=== PATIENT | female | born 1975 | race African-American/Black ===

== ENCOUNTER 2021-12-20 09:40 | Emergency (ER) | payer OTHER ==
--- OUTSIDE RECORDS SUMMARY | 2021-12-20 09:46 | XMS REPORT | Continuity of Care Document ---
:1975 Author Organization [facility] t Address [address] [place] [address] Care Team Providers Name Role Phone Silvia ARANA Primary Care Physician Unavailable [email or web address] Attending Clinician Unavailable NONI Attending Clinician Unavailable Brigitte Alejo Attending Clinician Unavailable Be Attending Clinician [phone] Juan Attending Clinician [phone] DORETHA Attending Clinician Unavailable MD Silvia COYNE Attending Clinician Unavailable Buck FAGN Attending Clinician Unavailable Aparna Attending Clinician [phone] Curt Attending Clinician Unavailable ALEX Attending Clinician Unavailable Silvia ARANA Attending Clinician Unavailable COVERDALE, H Attending Clinician Unavailable FIFI HILL Attending Clinician Unavailable COVERDALE, H Attending Clinician Unavailable Mariela Attending Clinician Unavailable Lisa Attending Clinician Unavailable Garfield Attending Clinician Unavailable Manfred VINSON Attending Clinician Unavailable KNOW Admitting Clinician Unavailable EARLENE, [facility] Admitting Clinician Unavailable DORETHA Admitting Clinician Unavailable MD Silvia COYNE Admitting Clinician Unavailable Be Unavailable [phone] Aparna Unavailable [phone] Foster Unavailable Unavailable Payers Payer Name Policy Type Policy Number Effective Date Expiration Date S shaina AMERIVANTAGE DUAL P [id number] HMO/MMP AMERIVANTAGE DUAL S [id number] 2021 2022 HMO/MMP 00:00:00 00:00:00 FINANCIAL [id number] 2021 ASSISTANCE 00:00:00 Problems Condition Condition Condition Status Onset Resolution Last Treating Co mments Source Name Details Category Date Date Treatment Clinician Date Anemia Condition Active 2021-03-18 Pearl Lr 03-18 20:04:52 Mariam Communi 00:00: ty 00 Health Menorrhagi Condition Active 2021-03-18 Earlene Lr a 03-18 14:38:37 Mariam Communi 00:00: ty 00 Health Elevation Condition Active 2021-03-18 Earlene Lr of levels 03-18 14:38:37 Mariam Commu ni of liver 00:00: ty transamina 00 Health se levels COVID-19 Condition Active 2021-03-18 Earlene Lr evaluation 03-18 14:38:37 Mariam Comm uni encounter, 00:00: ty exposure 00 Health ruled out Unspecifie Condition Active 2021-03-18 Villafranc [facility] d pruritic - 14:23:43 a, Comm uni disorder 00:00: Jesenia ty 00 Health Lower back Condition Active 2021-03-18 Earlene Lr pain 02-08 14:23:43 Mariam Communi 00:00: ty 00 Health Diabetes Condition Active 2021-03-18 Earlene Lr mellitus 02-08 14:23:43 Mariam Commun i type II 00:00: ty 00 Health MORBID Condition Active 2019-02-08 Pearl Lr OBESITY 02-08 12:04:41 Mariam Communi 00:00: ty 00 Health Bipolar Condition Active 2019-02-08 Yue Lr egacy disorder 01-11 11:40:30 Mariam Commun i 00:00: ty 00 Health Hepatitis Condition Active 2021-03-18 Earlene Lr B 01-11 14:34:29 Mariam Communi 00:00: ty 00 Health Health Condition Active 2019-01-11 Pearl Lr care 01-11 15:30:10 Mariam Communi maintenanc 00:00: ty e 00 Health Tobacco Condition Active 2019-02-08 Yue Lr jayant use 01-11 11:40:30 Mariam Communi 00:00: ty 00 Health HIV Condition Active 2021-03-18 Pearl Craig infection 12-28 14:34:29 Brijesh Commu ni 00:00: ty 00 Health Hordeolum Hordeolum Diagnosis Active C entral externum externum Care left upper left upper Co mmuni eyelid eyelid [facility] Back pain Back pain Diagnosis Active C entral Care Communi ty [facility] Center History of Past Illness Condition Condition Condition Status Onset Resolution Last Treating Co mments Source Name Details Category Date Date Treatment Clinician Date Trichomona Condition Inactiv 2021-03-18 2021-03-18 Earlene Lr 01-11 00:00:00 14:38:37 Mariam Commun i vaginitis 00:00: ty 00 Health Obesity Condition Inactiv 2019-02-08 2019-02-08 Earlene Lr 01-11 00:00:00 12:04:41 Mariam Commun i 00:00: ty 00 Health Pre-proced Condition Inactiv 2018-2019-01-11 2019-01-11 Earlene Lr ural e 12-28 00:00:00 15:30:10 Mariam Commun i laboratory 00:00: ty examinatio 00 Health n Allergies, Adverse Reactions, Alerts Allergy Allergy Status Severity Reaction(s) Onset Inactive Treating Comm ents Source Name Type Date Date Clinician No Known DA Active U [facility] Allergie 3-12 Pearlan s 00:00: d 00 Medical [place] Social History Social Habit Start Date Stop Date Quantity Comments Source social history 2021-03-18 2021-03-18 reviewed today [facility] reviewed E&M 14:19:28 14:19:28 [facility] time of call 2021-03-04 2021-03-04 03/04/2021 9:31 AM Lega cy 09:30:55 09:30:55 [facility] albumin, serum 2021-01-31 2021-01-31 3.9 g/dL [facility] 15:09:00 15:09:00 [facility] drug use 2021-01-31 2021-01-31 Previously [facility] 14:07:00 14:07:00 [facility] alcohol use 2021-01-31 2021-01-31 Currently [facility] 14:07:00 14:07:00 [facility] is there any chance 2021-01-31 2021-01-31 No Legac y that you could be 14:07:00 14:07:00 Communi ty ? Health tobacco use 2021-01-31 2021-01-31 Currently [facility] (cigarettes, cigar, 14:07:00 14:07:00 Commu nity chew, pipe) Health if the patient is 2021-01-31 2021-01-31 No [facility] using/has used a 14:07:00 14:07:00 Communit y vaping item, Health Current, Former, Never Used, Not asked sexual orientation 2021-01-31 2021-01-31 Heterosexual Lega cy 14:07:00 14:07:00 [facility] passive cigarette 2019-02-08 2019-02-08 Yes Legacy smoke exposure 11:20:49 11:20:49 [facility] PHQ2 Questionairre 2019-02-08 2019-02-08 Legacy Score 11:20:49 11:20:49 [facility] assessment of health 2019-02-08 2019-02-08 Adequate Lega cy literacy (NCQA [facility] 11:20:49 11:20:49 Commu nity 2014 Standards, Health 3C10) alcohol use, 2019-01-11 2019-01-11 few times per [facility] frequency 11:06:08 11:06:08 month [facility] sex at 2019-01-11 2019-01-11 Female [facility] 11:06:08 11:06:08 [facility] patient considered 2019-01-11 2019-01-11 Yes Legacy to be homeless 11:06:08 11:06:08 [facility] Smoking Status Start Date Stop Date Source Occasional tobacco smoker 2021-01-31 14:07:00 Pearl gibson [facility] (finding) Smokes tobacco daily (finding) 2019-02-08 11:20:49 [facility] Medications Ordered Filled Start Stop Current Ordering Indication Dosage Frequency Signature Comments Components Source Medication Medication Date Date Medication? Clinician (SIG) Name Name BACTRIM DS Yes Mariam Take 1 Leg acy (SULFAMETHO 8 Be tablet by C ommuni XAZOLE-TRIM 00:00: mouth ty ETHOPRIM) 00 every Health 800-160 MG twelve TABS hours Take twice a day for 3 weeks, then start taking it once a day. TRIUMEQ Yes Mariam 1 tablet Lega cy (ABACAVIR-D 6- Be by mouth Co mmuni OLUTEGRAVIR 00:00: once a day ty -LAMIVUD) 00 Health 600-50-300 MG TABS BACTRIM DS Mariam 1{Table 1xD 1 tablet [facility] (SULFAMETHO 6-04 08- Be t} by mouth C ommuni XAZOLE-TRIM 00:00: 00:00 once a day ty ETHOPRIM) 00 :00 Health 800-160 MG TABS Ibuprofen Ibuprofen Yes Maryann 1 tablet Central 4-05 Rodrigo as needed Care 00:00: Communi 00 Health Center TobraDex TobraDex 2018- Yes Maryann 1 Lobito tral 4-05 Rodrigo applicatio Care 00:00: n Communi 00 [facility] Zoloft 1969-0 Yes Legacy 1-01 Communi 00:00: ty 00 Health Immunizations Ordered Immunization Filled Immunization Date Status Commen ts Source Name Name engerix-b im 20 2019-02-08 Completed [facility] Co mmunity mcg/ml 12:26:00 Health [id number] prevnar 13 im 2019-01-11 Completed [facility] Comm unity [id number] 16:19:00 Health havrix im 1440 el 2019-01-11 Completed [facility] Community u/ml 16:16:00 Health [id number] Vital Signs Vital Name Observation Time Observation Value Comments Source height in 2021-01-31 14:07:00 [facility]56 [facility] oxygen saturation, 2019-02-08 11:20:49 98 /min [facility] oximetry Health blood pressure, 2019-02-08 11:20:49 80 mm[Hg] Legac y [facility] diastolic Health blood pressure, 2019-02-08 11:20:49 130 mm[Hg] Legac y [facility] systolic Health respiratory rate E&M 2019-02-08 11:20:49 12 /min [facility] Health pulse rate 2019-02-08 11:20:49 80 /min [facility] Health temperature E&M 2019-02-08 11:20:49 97.6 [degF] Legac [facility] Health weight E&M 2019-02-08 11:20:49 233 [lb_av] [facility] C ommunity Health weight in kilograms 2019-02-08 11:20:49 105.91 kg [facility] E& Health height in 2019-02-08 11:20:49 162.56 cm [facility] centimeters [facility]M Health temperature site 2019-02-08 11:20:49 oral Lega cy [facility] Health oxygen saturation, 2019-01-11 11:06:08 99 [facility], 2019-01-11 11:06:08 97 mm[Hg] Legac y [facility] diastolic Health blood pressure, 2019-01-11 11:06:08 138 mm[Hg] Legac y [facility] systolic Health respiratory rate E&M 2019-01-11 11:06:08 12 /min [facility] Health pulse rate 2019-01-11 11:06:08 70 /min [facility] temperature E&M 2019-01-11 11:06:08 97.8 [degF] Legac y [facility] Health height in 2019-01-11 11:06:08 162.56 [facility] centimeters [facility] Health weight E&M 2019-01-11 11:06:08 232 [lb_av] [facility] Health weight in kilograms 2019-01-11 11:06:08 105.45 kg L [facility] E&M Health temperature site 2019-01-11 11:06:08 oral Lega giuseppe [facility] Health Procedures Procedure Date / Time Performing Clinician Source Performed Prescription Assistance 2021-03-18 14:38:43 Mariam Lr [facility] (HIV - URGENT) Health 3044F Most recent 2021-02-01 21:57:29 Jesenia Braun Artie chin [facility] hemoglobin A1c (HbA1c) Health level less than 7.0% (DM) First Vx - Ix admin via 2019-02-08 12:24:05 Mariam Lr Community ID IM or jet injects Health without counseling by physician Engerix-B Injection 2019-02-08 12:24:05 Mariam Lr C ommunity Suspension 20 MCG/ML [facility] Health 2019-02-08 12:14:39 Reji Richardson Commu nity Education/Supportive Health Counseling Nutritional Counseling 2019-02-08 12:03:14 Mariam Lr [facility] Health Vaccines Ordered - Print 2019-02-08 11:48:39 Mariam Lr Community Consent/Declination Health [facility] Health 2019-02-07 16:50:50 Reji Richardson Commu nitdanish Education/Supportive Health Counseling Addl Vx - Ix admin via 2019-01-11 16:16:50 Mariam Lr Community ID IM or jet injects Health without counseling by physician Prevnar 13 Intramuscular 2019-01-11 16:16:50 Mariam Lr Community Suspension Health First Vx - Ix admin via 2019-01-11 16:16:49 Mariam Lr Community ID IM or jet injects Health without counseling by physician Havrix Intramuscular 2019-01-11 16:16:49 Mariam Lr Community Suspension 1440 EL U/ML [facility] Health 2019-01-11 15:13:31 Reji Richardson Commu nity Education/Supportive Health Counseling Primary Care Service 2019-01-11 14:16:16 Latesha Beltre Community Linkage Health Primary Care - Service 2019-01-11 13:46:16 Promise Tong Community Planning Comprehensive Health Primary Care - 2019-01-11 13:46:16 Promise Tong Com munity Assesment-Comprehensive Health [facility] Primary Care Medical 2019-01-11 13:42:57 Promise Tong y Community Case Management Health Dental - Internal 2019-01-11 12:35:02 Mariam Lr Com munity Health Prescription Assistance 2019-01-11 12:34:43 Mariam Lr Community (HIV - URGENT) Health Vaccines Ordered - Print 2019-01-11 12:30:22 Mariam Lry Community Consent/Declination Health Forms Health 2019-01-10 17:51:37 Reji Richardsonjohn Commu nity Education/Supportive Health Counseling Venipuncture 2018-12-28 10:56:59 Mariam Lr Commu nity [facility] 2018-12-24 11:21:17 Meli Marshall Legjohn Comm unity Education/Supportive Health Counseling Venipuncture 2014-05-30 10:25:18 Everett Valdez Leg[facility] Commu nity Health Encounters Start End Encounter Admission Attending Care Care Encounter Source Date/Time Date/Time Type Type Clinicians Facility Department ID 2021-12-14 Outpatient [email or web address] [facility] Legacy 11:01:00 [facility]ly [facility] 2021-10-30 Outpatient [email or web address] [facility] [id number] [facility] 11:23:03 [facility] 2021-02-23 [facility] [id number] [facility] 18[facility]45:17 CAESA 2018-04-03 Inpatient [facility] [id number] H arris 22:32:59 Health 2017-04-13 Inpatient [facility] [id number] H arris 13:52:03 [facility] 2017-04-03 Inpatient [facility] [id number] H arris 11:00:34 Health 2021-06-15 2021-06-16 Emergency EM Alejo, HCAPM MACO [id number] [facility] 03:08:00 11:01:00 Corbin [id number] [facility] 2021-06-15 2021-06-16 Emergency EM Alejo, HCAPM HCAPM [id number] [facility] 03:08:00 11:01:00 Corbin 61 [facility] 2021-03-18 2021-03-18 Office Mariam Lr [facility] [id number] [facility] 00:00:00 00:00:00 Visit Eliza Martinez [id number] [facility] 2021-02-25 2021-02-27 [id number] [place] 00:00:00 00:00:00 LYNDA [address] 2021-02-23 2021-02-26 Inpatient [facility] [id number] [place] 18:44:00 23:00:00 [facility] 2021-02-09 2021-02-10 Emergency PIZANO-RODNEY [facility] [id number] [place] 15:54:00 01:42:00 SPRING BAUTISTA [facility] 2021-01-31 2021-02-01 Office Jesenia Braun [facility] [id number] [facility] 00:00:00 00:00:00 Visit Paige Elias [id number] [facility] 2020-12-27 2020-12-27 [facility] [id number] [place] 10:09:52 16:37:00 [facility] 2020-12-20 2020-12-20 [facility] [id number] [place] 00:00:00 00:00:00 Community [facility] 2020-12-05 2020-12-10 Inpatient COVERDALE, [facility] [id number] [place] 17:54:00 16:30:00 [facility] 2020-12-06 2020-12-06 Outpatient [facility] [id number] [place] 13:59:39 23:59:00 [facility] MARLEN 2020-12-04 2020-12-05 Emergency COVERDALE, [facility] [id number] [place] 11:50:00 17:47:00 [facility] 2020-12-04 2020-12-04 [facility] [id number] [place] 10:06:44 11:49:00 Community [facility] 2019-02-08 2019-02-16 Office Mariam Lr [facility] [id number] [facility] 00:00:00 00:00:00 Visit Cali Sierra [id number] [facility]ly [facility] Eliza Martinez Kelvin Gonzalez 2019-01-27 2019-01-27 Outpatient [facility] [id number] [place] 00:00:00 00:00:00 Health 2019-01-13 2019-01-13 Outpatient [facility] [id number] [place] 00:00:00 00:00:00 Health 2019-01-12 2019-01-12 Outpatient [facility] [id number] [place] 00:00:00 00:00:00 Health 2019-01-12 2019-01-12 Outpatient [facility] [id number] [place] 00:00:00 00:00:00 Health 2019-01-12 2019-01-12 Outpatient [facility] [id number] [place] 00:00:00 00:00:00 [facility] 2019-01-11 2019-01-12 Office Mariam Lr [facility] [id number] [facility] 00:00:00 00:00:00 Visit Jose David Merrill [id number] Kelvin Olmedo [facility] 2019-01-04 2019-01-04 Outpatient [facility] [id number] [place] 00:00:00 00:00:00 [facility] 2018-12-30 2018-12-30 Outpatient [facility] [id number] [place] 12:43:50 12:43:50 Health 2018-12-28 2018-12-28 Outpatient [facility] [id number] [place] 14:31:57 14:31:57 Health 2018-12-01 2018-12-01 Outpatient [facility] [id number] [place] 13:59:24 13:59:24 Health 2018-11-30 2018-11-30 Outpatient [facility] [id number] [place] 00:00:00 00:00:00 [facility] 2018-11-12 2018-11-12 Outpatient [facility] [id number] [place] 10:20:00 10:20:00 Care Care Care Integrate Integrated Com ken d [facility] Services Services [facility] 2018-11-04 2018-11-04 Outpatient [facility] [id number] [place] 18:09:46 18:09:46 Health 2018-10-28 2018-10-28 Outpatient [facility] [id number] [place] 13:42:02 13:42:02 Health 2018-10-19 2018-10-19 Emergency [facility] [id number] [place] 08:23:34 08:23:34 Health 2018-10-18 2018-10-18 Emergency [facility] [id number] [place] 19:50:12 19:50:12 Health 2018-10-14 2018-10-14 Outpatient [facility] [id number] [place] 18:05:36 18:05:36 [facility] 2018-10-11 2018-10-11 Outpatient [facility] [id number] [place] 15:10:59 15:10:59 [facility] 2018-05-21 2018-05-21 Outpatient [facility] [id number] [place] 00:00:00 00:00:00 [facility] 2018-05-20 2018-05-20 Outpatient [facility] [id number] [place] 00:00:00 00:00:00 [facility] 2018-05-04 2018-05-04 Outpatient [facility] [id number] [place] 00:00:00 00:00:00 [facility] 2018-04-30 2018-04-30 Outpatient [facility] [id number] [place] 00:00:00 00:00:00 [facility] 2018-04-27 2018-04-27 Outpatient [facility] [id number] [place] 00:00:00 00:00:00 [facility] 2018-04-27 2018-04-27 Outpatient [facility] [id number] [place] 00:00:00 00:00:00 [facility] 2018-04-26 2018-04-26 Outpatient [facility] [id number] [place] 00:00:00 00:00:00 [facility] 2018-04-26 2018-04-26 Outpatient [facility] [id number] [place] 00:00:00 00:00:00 [facility] 2018-04-20 2018-04-20 Outpatient [facility] [id number] [place] 00:00:00 00:00:00 [facility] 2018-04-10 2018-04-10 Emergency [facility] [id number] [place] 15:11:14 15:11:14 [facility] 2018-04-02 2018-04-02 Emergency [facility] [id number] [place] 00:58:56 00:58:56 [facility] 2018-04-01 2018-04-01 Inpatient [facility] [id number] [place] 14:39:01 14:39:01 [facility] 2018-04-01 2018-04-01 Emergency [facility] [id number] [place] 00:00:00 00:00:00 [facility] 2018-04-01 2018-04-01 Emergency [facility] [id number] [place] 00:00:00 00:00:00 [facility] 2018-04-01 2018-04-01 Emergency [facility] [id number] [place] 00:00:00 00:00:00 [facility] 2018-03-25 2018-03-25 Outpatient [facility] [id number] [place] 10:18:11 10:18:11 [facility] 2017-12-21 2017-12-21 Outpatient [facility] [id number] [place] 00:00:00 00:00:00 [facility] 2017-11-26 2017-11-26 Outpatient [facility] [id number] [place] 00:00:00 00:00:00 [facility] 2017-11-26 2017-11-26 Outpatient [facility] [id number] [place] 00:00:00 00:00:00 [facility] 2017-11-17 2017-11-17 Outpatient [facility] [id number] [place] 00:00:00 00:00:00 [facility] 2017-10-05 2017-10-05 Outpatient [facility] [id number] [place] 00:00:00 00:00:00 [facility] 2017-09-21 2017-09-21 Outpatient [facility] [id number] [place] 10:47:39 10:47:39 [facility] 2017-09-21 2017-09-21 Outpatient [facility] [id number] [place] 10:03:07 10:03:07 [facility] 2017-09-17 2017-09-17 Outpatient [facility] [id number] [place] 09:42:58 09:42:58 [facility] 2017-09-17 2017-09-17 Outpatient [facility] [id number] [place] 00:00:00 00:00:00 [facility] 2017-09-17 2017-09-17 Outpatient [facility] [id number] [place] 00:00:00 00:00:00 [facility] 2017-08-19 2017-08-19 Outpatient [facility] [id number] [place] 11:43:01 11:43:01 [facility] 2017-08-19 2017-08-19 Outpatient [facility] [id number] [place] 11:08:56 11:08:56 [facility] 2017-08-06 2017-08-06 Outpatient [facility] [id number] [place] 00:00:00 00:00:00 [facility] 2017-08-06 2017-08-06 Outpatient [facility] [id number] [place] 00:00:00 00:00:00 [facility] 2017-07-30 2017-07-30 Outpatient [facility] [id number] [place] 00:00:00 00:00:00 [facility] 2017-07-30 2017-07-30 Outpatient [facility] [id number] [place] 00:00:00 00:00:00 [facility] 2017-07-24 2017-07-24 Outpatient [facility] [id number] [place] 12:33:18 12:33:18 [facility] 2017-07-24 2017-07-24 Outpatient [facility] [id number] [place] 10:59:12 10:59:12 [facility] 2017-07-07 2017-07-07 Outpatient [facility] [id number] [place] 00:00:00 00:00:00 [facility] 2017-06-30 2017-06-30 Outpatient [facility] [id number] [place] 00:00:00 00:00:00 [facility] 2017-06-24 2017-06-24 Outpatient [facility] [id number] [place] 00:00:00 00:00:00 [facility] 2017-06-16 2017-06-16 Outpatient [facility] [id number] [place] 00:00:00 00:00:00 [facility] 2017-05-07 2017-05-07 Outpatient [facility] [id number] [place] 00:00:00 00:00:00 [facility] 2017-05-05 2017-05-05 Outpatient [facility] [id number] [place] 00:00:00 00:00:00 [facility] 2017-04-22 2017-04-22 Outpatient [facility] [id number] [place] 00:00:00 00:00:00 [facility] 2017-04-02 2017-04-02 Emergency [facility] [id number] [place] 10:35:44 10:35:44 [facility] 2017-03-27 2017-03-27 Outpatient [facility] [id number] [place] 14:06:43 14:06:43 [facility] 2017-03-23 2017-03-23 [facility] [facility] [id number] Pérez 13:34:49 13:34:49 [facility] 2017-03-23 2017-03-23 Outpatient [facility] [id number] Pérez 08:11:00 08:11:00 [facility] 2017-03-23 2017-03-23 Outpatient [facility] [id number] [place] 00:00:00 00:00:00 [facility] 2017-03-23 2017-03-23 Outpatient [facility] [id number] [place] 00:00:00 00:00:00 [facility] 2017-03-10 2017-03-10 Outpatient [facility] [id number] Pérez 00:00:00 00:00:00 [facility] 2017-03-06 2017-03-06 Outpatient [facility] [id number] [place] 00:00:00 00:00:00 [facility] 2017-03-06 2017-03-06 Outpatient [facility] [id number] [place] 00:00:00 00:00:00 [facility] 2017-03-03 2017-03-03 Outpatient [facility] [id number] Pérez 00:00:00 00:00:00 [facility] 2017-02-26 2017-02-26 Outpatient [facility] [id number] [place] 00:00:00 00:00:00 [facility] 2017-02-26 2017-02-26 Outpatient [facility] [id number] [place] 00:00:00 00:00:00 [facility] 2017-02-20 2017-02-20 Outpatient [facility] [id number] Pérez 00:00:00 00:00:00 [facility] 2017-02-04 2017-02-04 Outpatient [facility] [id number] Pérez 00:00:00 00:00:00 [facility] 2017-01-28 2017-01-28 Outpatient [facility] [id number] Pérez 00:00:00 00:00:00 [facility] 2017-01-21 2017-01-21 Outpatient [facility] [id number] [place] 00:00:00 00:00:00 [facility] 2017-01-20 2017-01-20 Outpatient [facility] [id number] [place]érez 00:00:00 00:00:00 [facility] 2017-01-12 2017-01-12 Outpatient [facility] [id number] [place] 00:00:00 00:00:00 [facility] 2017-01-07 2017-01-07 Outpatient [facility] [id number] Pérez 00:00:00 00:00:00 [facility] 2017-01-02 2017-01-02 Outpatient [facility] [id number] Pérez 10:08:32 10:08:32 [facility] 2017-01-02 2017-01-02 Outpatient [facility] [id number] Pérez 00:00:00 00:00:00 [facility] 2017-01-02 2017-01-02 Outpatient [facility] [id number] Pérez 00:00:00 00:00:00 [facility] 2016-12-29 2016-12-29 Outpatient [facility] [id number] Pérez 00:00:00 00:00:00 [facility] 2016-12-22 2016-12-22 Outpatient [facility] [id number] [place] 12:36:59 12:36:59 Health 2016-12-22 2016-12-22 Outpatient [facility] [id number] Pérez 12:30:10 12:30:10 [facility] 2016-12-22 2016-12-22 Outpatient [facility] [id number] [place] 12:15:39 12:15:39 Health 2016-12-22 2016-12-22 Outpatient [facility] [id number] [place] 11:07:45 11:07:45 Health Results Test Description Test Time Test Comments Results Result Comments Source COVID Asymptomatic IH NTX 2021-06-17 10:27:00 Test Item Value Reference Range Interpretation Comme nts COVID Asymptomatic IH NTX Negative Negative A negative result does not preclude the (test code = COVNONPUINTX) S ARS-COV-2 viralinfection and should not be used as the sole basis forpatient chai gement decisions. Negative result s must becombined with clinical observ ations, patient history, andepidemiologi davian information. Viral levels in clini calsamples below the detection limit of the assay could lead tonegative resu lts. This test was performed using the [employer] SmartTM COVID-19 PCRass ay. This test was developed and i ts performancechar acteristics were determined by [facility] t[facility]. Thi s test has notbeen FDA cleared or appr héctor. This test is authorized by t heFDA under Emergency Use Authorizati on(EUA). The EUA willremain in e ffect unless it is terminated or r evoked by FDA . Testing parameters have not been validated for screeningasympt omatic patients. This test was valida beverly according to the FDA's guidanced ocument "Policy for Diagnostics gennaro ting in LaboratoriesCer tified to Perform High Complexity Test ing under CLIA". First test? NoEmployed in Healthcare? NoSymptomatic as defined by CDC? NoHospitalized due to COVID? NoIn ICU due to COVID? NoResident in a congregate care setting? No? NoCOVID 19 Asymptomatic IH [id number] 10:27:00 Test Item Value Reference Range Interpretation Comments COVID 19 Asymptomatic NEGATIVE Negative Per conrad nulaurenurer, IH AG (test code = negative results should COVNONPUIAG) be treated aspresumptive a nd, if inconsistent wi th clinical signs andsymptoms or necessary for p atient management, deisy uld betested with a n alternative mol ecular assay. Negative resultsdo not p reclude SARS-CoV-2 infe ction and should not be usedas the sole basis for patient man agement decisions. Neg ative results should be considered in t he context of apat ient's recent exposure s, history, prese nce of clinicalsigns a nd symptoms consis tent with COVID-19. First test? NoEmployed in Healthcare? NoSymptomatic as defined by CDC? NoHospitalized due to COVID? NoIn ICU due to COVID? NoResident in a congregate care setting? No? [id number] 10:09:00 Test Item Value Reference Range Interpretation Comments ALCOHOL (test code = ALC) < 3 MG/DL 0-10 N DRUGS OF ABUSE SCREEN [id number] 08:53:00 Test Item Value Reference Range Interpretation Comments URN COCAINE (test NEGATIVE See_Comment UNCONFIRME D code = COCAURN) SCcutoff SCREENING RE SULTS SHOULD NOT BE U SED FORNON-MEDICAL PURPOSES. [Automated message] The system which generated this result transmit beverly reference range : <300 NG/ML. The reference range was not used to interpret this result as normal/abnormal . URN CANNABINOIDS NEGATIVE See_Comment UNCONFIRMED (test code = SCcutoff SCREENING RESUL TS CANNABURN) SHOULD NOT BE U SED FORNON-MEDICAL PURPOSES. [Automated message] The system which generated this result transmit beverly reference range : <50 NG/ML. The reference range was not used to interpret this result as normal/abnormal . URN AMPHETAMINE (test NEGATIVE See_Comment UNCONF IRMED code = AMPHETURN) SCcutoff SCREENING RESULTS SHOULD NOT BE U SED FORNON-MEDICAL PURPOSES. [Automated message] The system which generated this result transmit beverly reference range : <1000 NG/ML. Th e reference range was not used to interpret this result as normal/abnormal . URN BARBITURATE (test NEGATIVE See_Comment UNCONF IRMED code = BARBITURN) SCcutoff SCREENING RESULTS SHOULD NOT BE U SED FORNON-MEDICAL PURPOSES. [Automated message] The system which generated this result transmit beverly reference range : <200 NG/ML. The reference range was not used to interpret this result as normal/abnormal . URN BENZODIAZEPINE NEGATIVE See_Comment UNCONFIRM ED (test code = SCcutoff SCREENING RESUL TS BENZOURN) SHOULD NOT BE U SED FORNON-MEDICAL PURPOSES. [Automated message] The system which generated this result transmit beverly reference range : <200 NG/ML. The reference range was not used to interpret this result as normal/abnormal . URN OPIATES (test NEGATIVE See_Comment [Automate d code = OPIATURN) SCcutoff message] Th e system which generated this result transmit beverly reference range : <300 NG/ML. The reference range was not used to interpret this result as normal/abnormal . URN PHENCYCLIDINE POSITIVE See_Comment A UNCONFIRME D (PCP) (test code = SCcutoff SCREENING RESULTS PHENCURN) SHOULD NOT BE U SED FORNON-MEDICAL PURPOSES. [Automated message] The system which generated this result transmit beverly reference range : <25 NG/ML. The reference range was not used to interpret this result as normal/abnormal . URN METHADONE (test NEGATIVE See_Comment UNCONFIR MED code = METHAURN) SCcutoff SCREENING R ESULTS SHOULD NOT BE U SED FORNON-MEDICAL PURPOSES. [Automated message] The system which generated this result transmit beverly reference range : <300 NG/ML. The reference range was not used to interpret this result as normal/abnormal . - CT ABD PELVIS [id number] 06:59:00 [facility] : 1975 Sex: F Name: MANDI BAER [facility] : 1975 Age/S: 45 / F [id number] Unit #: [id number] Loc: [place] [address] Phys: Ismael Tyler MD Acct: [id number] Dis Date: Status: REG ER PHONE #: [phone] Exam Date: 06/15/2021 0635 FAX #: Reason: lower quadrant abdominal pain, [place] EXAMS: CPT: [id number] CT ABD PELVIS W/CONT 42722 Examination: CT scan abdomen and pelvis with contrast. Location code: H 60. TECHNIQUE: Multiple axial images of the abdomen and pelvis were obtained after intravenous administration of contrast with sagittal and coronal reconstructions. CT examination was performed using automated dose reduction. Discussion: Clinical history significant for lower abdominal pain. Nausea and vomiting. The liver, spleen, adrenal glands, pancreas and kidneys are normal in appearance. Hiatal hernia is identified. No radiopaque gallstones are noted. No radiopaque renal calculi identified. Bowel loops are normal in caliber.No enlarged retroperitoneal, pelvic or inguinal adenopathy is noted. The bladderis mildly distended and grossly unremarkable. Uterus is prominent. Bilateral adnexal hypodensities identified consistent with the patient's ovaries. No other abnormal masses or fluid collections identified within the abdomen and/or pelvis. Appendix is normal in appearance.There is no CT evidence for appendicitis. Lung bases are clear. IMPRESSION: 1. Small hiatal hernia. 2. Otherwise unremarkable CT scan of abdomen and pelvis. at 0659 Reported and signed by: Vipul Gracia M.D. CC: Technologist:RT Malina (R)(CT) CTDI: DLP: Trnscb Date/Time: 06/15/2021 (0659) [email or web address] Orig Print D/T: S: 06/15/2021 (0702) PAGE 1 Signed R eportUR HCG [id number] 05:19:00 Test Item Value Reference Range Interpretation Comments UR HCG QUAL (test code = HCGQLU) NEGATIVE NEGATIVE BASIC METABOLIC [id number] 04:28:00 Test Item Value Reference Range Interpretation Comments SODIUM (test code = NA) 138 mmol/L 134-147 N POTASSIUM (test code = 4.2 mmol/L 3.4-5.0 N K) CHLORIDE (test code = 109 mmol/L 100-108 H CL) CARBON DIOXIDE (test 23 mmol/L 21-32 N code = CO2) ANION GAP (test code = 6.0 GAP calc 4.0-15.0 N GAP) GLUCOSE (test code = 104 MG/DL 70-110 N GLU) BLOOD UREA NITROGEN 4 MG/DL 7-18 L (test code = BUN) GLOMERULAR FILTRATION >=60 max estimate >60 RATE (test code = GFR) estGFR CREATININE (test code = 0.6 MG/DL 0.6-1.0 N CREAT) CALCIUM (test code = CA) 8.7 MG/DL 8.5-10.1 N Completed by Nursing: NOHEPATIC FUNCTION [id number] 04:28:00 Test Item Value Reference Range Interpretation Comments TOTAL PROTEIN (test code = PROT) 8.1 G/DL 6.4-8.2 N ALBUMIN (test code = ALB) 3.3 G/DL 3.4-5.0 L BILIRUBIN TOTAL (test code = 0.20 MG/DL 0.2-1.2 N BILT) BILIRUBIN DIRECT (test code = < 0.10 MG/DL 0.00-0.30 N BILD) BILIRUBIN INDIRECT (test code = 0.10 MG/DL 0.2-1.2 L BILIND) SGOT/AST (test code = AST) 39 Unit/L 15-37 H SGPT/ALT (test code = ALT) 46 Unit/L 12-78 N ALKALINE PHOSPHATASE TOTAL (test 55 Unit/L 45-117 N code = ALKP) Completed by Nursing: [id number] 04:28:00 Test Item Value Reference Range Interpretation Comments LIPASE (test code = LIP) 138 Unit/L 114-286 N Completed by Nursing: [id number] 04:28:00 Test Item Value Reference Range Interpretation Comments TROPONIN-I (test < 0.015 NG/ML 0.000-0.045 N Negative: </= 0.045 code = TROPI) Positive: >/= 0.046 Correlation wit h serial results, other cardiac markers, and cl inical findings is nec essary to determine the c linical significance of this result. Quantit ative results using d ifferent methodologies s hould not be compared to one another as nume rical results may meredith yby method. Completed by Nursing: NANCIEUA RFLX MICR CULT IF [id number] 04:27:00 Test Item Value Reference Range Interpretation Comments UA COLOR (test code = YELLOW discript YEL/STRAW COLU) UA APPEARANCE (test code CLEAR discript CLEAR = APPU) UA GLUCOSE DIPSTICK (test NEGATIVE mg/dL NEG code = DGLUU) UA BILIRUBIN DIPSTICK NEGATIVE mg/dL NEG (test code = BILU) UA KETONE DIPSTICK (test NEGATIVE mg/dL NEG code = KETU) UA SPECIFIC GRAVITY (test 1.025 SG 1.005-1.030 code = SGU) UA BLOOD DIPSTICK (test TRACE mg/DL NEG A code = JUNIOR) UA PH DIPSTICK (test code 6.0 pH UNITS 5.0-7.0 = VENECIA) UA PROTEIN DIPSTICK (test NEGATIVE mg/dL NEG code = PROU) UA UROBILINIOGEN DIPSTICK 0.2 mg/dL <2.0 (test code = URO) UA NITRITE DIPSTICK (test NEGATIVE SCREEN NEG code = AHMET) UA LEUKOCYTE ESTERASE NEGATIVE Leuk/mcL NEGATIVE DIPSTICK (test code = LEUU) UA CULTURE NEEDED? (test NO, WBC<10 Criteria Culture CHK code = UACULT) UA WBC (test code = WBCU) 1-3 #WBC/HPF 0-3 UA RBC (test code = RBCU) 1-3 #RBC/HPF 0-3 UA BACTERIA (test code = NONE SEEN /HPF NONE-TRACE BACU) UA SQUAMOUS CELLS (test NONE SEEN /HPF NONE code = SQU) Indication for culture: Suprapubic PainCBC W/AUTO [id number] 04:12:00 Test Item Value Reference Range Interpretation Comments WHITE BLOOD CELL (test code = 5.2 K/mm3 3.5-11.0 N WBC) RED BLOOD CELL (test code = 3.46 M/mm3 4.70-6.10 L RBC) HEMOGLOBIN (test code = HGB) 7.9 G/DL 10.4-14.9 L HEMATOCRIT (test code = HCT) 26.0 % 31.5-44.1 L MEAN CELL VOLUME (test code = 75.1 Fl 84.5-98.6 L MCV) MEAN CELL HGB (test code = MCH) 22.8 pg 27.0-34.2 L MEAN CELL HGB CONCETRATION 30.4 G/DL 31.5-34.0 L (test code = MCHC) RED CELL DISTRIBUTION WIDTH 16.5 SD 11.5-14.5 H (test code = RDW) PLATELET COUNT (test code = 382 K/mm3 150-450 N PLT) MEAN PLATELET VOLUME (test code 9.90 fL 7.0-10.5 N = MPV) NEUTROPHIL % (test code = NT%) 66.0 % 40-76 N IMMATURE GRANULOCYTE % (test 0.2 % 0.0-5.0 N code = IG%) LYMPHOCYTE % (test code = LY%) 23.2 % 20.5-51.1 N MONOCYTE % (test code = MO%) 8.1 % 1.7-9.3 N EOSINOPHIL % (test code = EO%) 2.1 % 0.0-6.0 N BASOPHIL % (test code = BA%) 0.4 % 0.0-2.0 N NUCLEATED RBC % (test code = 0.0 /100WBC% 0.0-1.0 N NRBC%) NEUTROPHIL # (test code = NT#) 3.4 K/mm3 1.8-7.6 N IMMATURE GRANULOCYTE # (test 0.01 x10 3/uL 0.00-0.03 N code = IG#) LYMPHOCYTE # (test code = LY#) 1.2 K/mm3 0.6-3.2 N MONOCYTE # (test code = MO#) 0.4 K/mm3 0.3-1.1 N EOSINOPHIL # (test code = EO#) 0.1 K/mm3 0.0-0.4 N BASOPHIL # (test code = BA#) 0.0 K/mm3 0.0-0.1 N NUCLEATED RBC # (test code = 0.0 K/mm3 0.0-0.1 N NRBC#) MANUAL DIFF REQUIRED (test code NO DIFF/SCN CRITERIA = MDIFF) 2019NCoV (COVID-19) SARS coronavirus 2 RNA (Presence) in Respiratory specimen by ROBERT with probe detection (Other Lab)2021-03-18 18:32:00 Test Item Value Reference Range Interpretation Comments 2019NCoV (COVID-19) SARS Not Detected Not Detected coronavirus 2 RNA (Presence) in Respiratory specimen by ROBERT with probe detection (Other Lab) (test code = 63091-1) [facility] (C[facility]-19) RNA [Presence] in Respiratory specimen by ROBERT with probe [id number] 05:50:54 Test Item Value Reference Range Interpretation Comments SARS-CoV-2 (COVID-19) RNA Not detected Not-Detected [Presence] in Respiratory specimen by ROBERT with probe detection (test code = 98921-2) 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 employed 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 healthcare 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 (test code = 88986-4) Whether the patient has symptoms related to condition of interest (test code = 11851-4) Patient was hospitalized because of this condition (test code = 02340-5) Whether the patient was admitted to intensive care unit (ICU) for condition of interest (test code = 95386-7) Whether patient resides in a congregate care setting (test code = 42125-4) Neisseria gonorrhoeae DNA [id number] 15:15:00 Test Item Value Reference Range Interpretation Comments Neisseria gonorrhoeae DNA probe Negative Negative (test code = 59061-1) [facility] [id number] 15:15:00 Test Item Value Reference Range Interpretation Comments chlamydia DNA probe (test code = Negative Negative 38623-5) [facility] [id number] 15:09:00 Test Item Value Reference Range Interpretation Comments chloride, serum (test code = 104 mmol/L 96-106 2075-0) [facility], [id number] 15:09:00 Test Item Value Reference Range Interpretation Comments potassium, serum (test code = 3.8 mmol/L 3.5-5.2 2823-3) [facility]odium, [id number] 15:09:00 Test Item Value Reference Range Interpretation Comments sodium, serum (test code = 2951-2) 140 mmol/L 134-144 [facility]/creatinine ratio, [id number] 15:09:00 Test Item Value Reference Range Interpretation Comments urea nitrogen/creatinine 7 (unknown unit) 9-23 L ratio, serum (test code = 3097-3) [facility]aleGFR if [id number] 15:09:00 Test Item Value Reference Range Interpretation Comments eGFR if 128 mL/min/{1.73 m2} >59 (test code = 99572-5) [facility]Estim[facility] Glomerular Filtration Rate (calc)2021-01-31 15:09:00 Test Item Value Reference Range Interpretation Comments Estimated Glomerular 111 mL/min/{1.73 m2} >59 Filtration Rate (calc) (test code = 15963-2) [facility], [id number] 15:09:00 Test Item Value Reference Range Interpretation Comments creatinine, serum (test code = 0.61 mg/dL 0.57-1.00 2160-0) [facility] nitrogen, [id number] 15:09:00 Test Item Value Reference Range Interpretation Comments urea nitrogen, blood (test code = 4 mg/dL 6-24 L 3094-0) [facility], [id number] 15:09:00 Test Item Value Reference Range Interpretation Comments blood glucose, random (test code = 91 mg/dL 65-99 2339-0) [facility]imm[facility]ocytes, percentage of total cells, blood 2021-01-31 15:09:00 Test Item Value Reference Range Interpretation Comments immature granulocytes, percentage of 0 % total cells, blood (test code = 77440-1) [facility] count, [id number] 15:09:00 Test Item Value Reference Range Interpretation Comments basophil count, absolute (test 0.0 x10E3/uL 0.0-0.2 code = 83264-9) [facility]osin[facility] Absolute [id number] 15:09:00 Test Item Value Reference Range Interpretation Comments Eosinophil Absolute Count (test 0.1 X10E3/UL 0.0-0.4 code = 10267-0) [facility]mon[facility] count, blood, [id number] 15:09:00 Test Item Value Reference Range Interpretation Comments monocyte count, blood, automated 0.3 X10E3/UL 0.1-0.9 (test code = 742-7) [facility]allymph[facility], blood, [id number] 15:09:00 Test Item Value Reference Range Interpretation Comments lymphocyte count, blood, 0.4 X10E3/UL 0.7-3.1 L automated (test code = 731-0) [facility] HospitalAbsolute [id number] 15:09:00 Test Item Value Reference Range Interpretation Comments Absolute Neutrophils (test code 2.8 X10E3/UL 1.4-7.0 = 12991-4) [facility]bas[facility] as percent of blood [id number] 15:09:00 Test Item Value Reference Range Interpretation Comments basophils as percent of blood 0 % leukocytes (test code = 707-0) [facility] percent of blood [id number] 15:09:00 Test Item Value Reference Range Interpretation Comments eosinophils as percent of blood 3 % leukocytes (test code = 713-8) [facility] Healthmonocytes as percent of blood [id number] 15:09:00 Test Item Value Reference Range Interpretation Comments monocytes as percent of blood 7 % leukocytes (test code = 5905-5) [facility]mph[facility] percent of blood [id number] 15:09:00 Test Item Value Reference Range Interpretation Comments lymphocytes as percent of blood 12 % leukocytes (test code = 736-9) [facility] as percent of blood [id number] 15:09:00 Test Item Value Reference Range Interpretation Comments neutrophils as percent of blood 78 % leukocytes (test code = 770-8) [facility]platelet [id number] 15:09:00 Test Item Value Reference Range Interpretation Comments platelet count (test code = 375 X10E3/UL 150-450 777-3) [facility] distribution [id number] 15:09:00 Test Item Value Reference Range Interpretation Comments red blood cell distribution width 17.7 % 11.7-15.4 H (test code = 788-0) [facility] corpuscular hemoglobin concentration, [id number] 15:09:00 Test Item Value Reference Range Interpretation Comments mean corpuscular hemoglobin 29.0 G/DL 31.5-35.7 L concentration, RBC (test code = 786-4) [facility] corpuscular hemoglobin, [id number] 15:09:00 Test Item Value Reference Range Interpretation Comments mean corpuscular hemoglobin, RBC 19.9 pg 26.6-33.0 L (test code = 785-6) [facility] corpuscular volume, [id number] 15:09:00 Test Item Value Reference Range Interpretation Comments mean corpuscular volume, RBC (test code 69 fL 79-97 L = 787-2) [facility]hematocrit, [id number] 15:09:00 Test Item Value Reference Range Interpretation Comments hematocrit, blood (test code = 4544-3) 25.5 % 34.0-46.6 L [facility]hemoglobin, [id number] 15:09:00 Test Item Value Reference Range Interpretation Comments hemoglobin, blood (test code = 7.4 g/dL 11.1-15.9 L 718-7) [facility]erythrocyte (RBC) [id number] 15:09:00 Test Item Value Reference Range Interpretation Comments erythrocyte (RBC) count (test 3.72 X10E6/UL 3.77-5.28 L code = 789-8) [facility]leukocyte count, [id number] 15:09:00 Test Item Value Reference Range Interpretation Comments leukocyte count, blood (test 3.7 X10E3/UL 3.4-10.8 code = 6690-2) [facility] HospitalCD4/CD8 [id number] 15:09:00 Test Item Value Reference Range Interpretation Comments CD4/CD8 ratio (test code 0.03 (unknown unit) 0.92-3.72 L = 60723) [facility] HospitalT-suppressor cells (CD8) as percent of blood lymphocytes 2021-01-31 15:09:00 Test Item Value Reference Range Interpretation Comments T-suppressor cells (CD8) as percent of 48.5 % 12.0-35.5 H blood lymphocytes (test code = 3517) [facility] Hospitalabsolute [id number] 15:09:00 Test Item Value Reference Range Interpretation Comments absolute CD8 (test code = 194 (unknown unit) 109-063 53635) [facility]T-helper cells (CD4) as percent of blood lymphocytes 2021-01-31 15:09:00 Test Item Value Reference Range Interpretation Comments T-helper cells (CD4) as percent of 1.3 % 30.8-58.5 L blood lymphocytes (test code = 8123-2) [facility]T-helper cells (CD4) [id number] 15:09:00 Test Item Value Reference Range Interpretation Comments T-helper cells (CD4) count (test code = 5 /UL 359-1519 L 06909-7) [facility]hepat[facility] B surface [id number] 15:09:00 Test Item Value Reference Range Interpretation Comments hepatitis B surface antigen (test Negative Negative code = 79) [facility], [id number] 15:09:00 Test Item Value Reference Range Interpretation Comments hepatitis C antibody, 0.1 (unknown unit) 0.0-0.9 serum (test code = 5199-5) [facility] Hospitalrapid plasma reagin antibody, [id number] 15:09:00 Test Item Value Reference Range Interpretation Comments rapid plasma reagin antibody, Non Reactive Non Reactive serum (test code = 5291-0) [facility] HospitalHIV-1RNA, serum, by PCR, [id number] 15:09:00 Test Item Value Reference Range Interpretation Comments HIV-1RNA, serum, by PCR, 18160 /mL quantitative (test code = 83932) [facility] HospitalLDL cholesterol, [id number] 15:09:00 Test Item Value Reference Range Interpretation Comments LDL cholesterol, serum (test code = 73 mg/dL 0-99 2088-1) [facility] cphtxanzvenz6473-52-35 15:09:00 Test Item Value Reference Range Interpretation Comments very low density lipoproteins (test 19 mg/dL 5-40 code = 1-7) [facility]HDL cholesterol, [id number] 15:09:00 Test Item Value Reference Range Interpretation Comments HDL cholesterol, serum (test code = 26 mg/dL >39 L 5-9) [facility]trig[facility], serum, [id number] 15:09:00 Test Item Value Reference Range Interpretation Comments triglyceride, serum, fasting (test 97 mg/dL 0-149 code = 2571-8) [facility]cholesterol, caeos5349-60-04 15:09:00 Test Item Value Reference Range Interpretation Comments cholesterol, serum (test code = 118 mg/dL 035-300 6864-3) [facility]alanine aminotransferase (SGPT), yutuf4099-88-15 15:09:00 Test Item Value Reference Range Interpretation Comments alanine aminotransferase (SGPT), 122 1/L 0-32 H serum (test code = 1742-6) [facility]aspartate aminotransferase (SGOT), szmmt0876-82-05 15:09:00 Test Item Value Reference Range Interpretation Comments aspartate aminotransferase (SGOT), 206 1/L 0-40 H serum (test code = 1920-8) [facility]alkaline phosphatase, [id number] 15:09:00 Test Item Value Reference Range Interpretation Comments alkaline phosphatase, serum (test code 65 1/L 48-121 = 1783-0) [facility]bilirubin, serum, [id number] 15:09:00 Test Item Value Reference Range Interpretation Comments bilirubin, serum, total (test code 0.4 mg/dL 0.0-1.2 = 1975-2) [facility] Healthalbumin/globulin ratio, [id number] 15:09:00 Test Item Value Reference Range Interpretation Comments albumin/globulin ratio, 0.9 (unknown unit) 1.2-2.2 L serum (test code = 1759-0) [facility] Healthglobulin, [id number] 15:09:00 Test Item Value Reference Range Interpretation Comments globulin, serum (test code 4.5 (unknown unit) 1.5-4.5 = 2336-6) [facility] Healthalbumin, [id number] 15:09:00 Test Item Value Reference Range Interpretation Comments albumin, serum (test code = 1751-7) 3.9 g/dL 3.8-4.8 [facility]protein, total, ozjei4001-10-17 15:09:00 Test Item Value Reference Range Interpretation Comments protein, total, serum (test code = 8.4 g/dL 6.0-8.5 2885-2) [facility]calcium, [id number] 15:09:00 Test Item Value Reference Range Interpretation Comments calcium, serum (test code = 1999-8) 9.1 mg/dL 8.7-10.2 [facility]carbon dioxide, venous utyhs5515-55-61 15:09:00 Test Item Value Reference Range Interpretation Comments carbon dioxide, venous blood (test 22 mmol/L 20-29 code = 2027-1) [facility]Quantifer[facility] Gold TB blood test for tuberculosis screening 2019-01-11 15:01:00 Test Item Value Reference Range Interpretation Comments Quantiferon Gold TB blood test for Negative Negative tuberculosis screening (test code = 54004-5) [facility]hemoglobin A1C, blood, as % of total cevtwlzgee1822-58-25 14:55:00 Test Item Value Reference Range Interpretation Comments hemoglobin A1C, blood, as % of total 6.5 % 4.8-5.6 H hemoglobin (test code = 4548-4) [facility]hepatitis B e antibody, hblvy2348-70-30 14:55:00 Test Item Value Reference Range Interpretation Comments hepatitis B e antibody, serum (test Positive Negative A code = 79440) [facility] e antigen, [id number] 14:55:00 Test Item Value Reference Range Interpretation Comments hepatitis B e antigen, serum (test Negative Negative code = 64542) [facility], by Polymerase Chain Reaction 2019-01-11 14:55:00 Test Item Value Reference Range Interpretation Comments Hepatitis B virus DNA, by Polymerase <10 Chain Reaction (test code = 38897) [facility]Neisseria gonorrhoeae DNA [id number] 11:23:00 Test Item Value Reference Range Interpretation Comments Neisseria gonorrhoeae DNA probe Negative Negative (test code = 37373-6) [facility]chlamydia DNA [id number] 11:23:00 Test Item Value Reference Range Interpretation Comments chlamydia DNA probe (test code = Negative Negative 85587-0) [facility]protein, total urine pltpwu0639-10-56 11:23:00 Test Item Value Reference Range Interpretation Comments protein, total urine random (test 6.2 mg/dL code = 59923-7) [facility]creatinine, random, hhaug4363-01-00 11:23:00 Test Item Value Reference Range Interpretation Comments creatinine, random, urine (test 66.8 mg/dL code = 2161-8) [facility]bacteria, urine qevddgedyg3989-03-47 11:23:00 Test Item Value Reference Range Interpretation Comments bacteria, urine microscopy (test code = Few None seen/Few 5769-5) [facility]mucus on qosorohhxh1677-27-63 11:23:00 Test Item Value Reference Range Interpretation Comments mucus on urinalysis (test code = Present 8247-9) [facility]epithelial cells, crkpu5325-74-14 11:23:00 Test Item Value Reference Range Interpretation Comments epithelial cells, urine (test code = >10 0-10 A 5787-7) [facility] HospitalRBC, Iqsms0801-79-05 11:23:00 Test Item Value Reference Range Interpretation Comments RBC, Urine (test code = 63200-6) 0-2 /hpf 0-2 [facility]urinalysis, microscopic mqycoocpowu1806-84-32 11:23:00 Test Item Value Reference Range Interpretation Comments urinalysis, microscopic See below: examination (test code = 19276-6) [facility]nitrate, qnpjc4262-08-64 11:23:00 Test Item Value Reference Range Interpretation Comments nitrate, urine (test code = 48787-2) Negative Negative [facility] Hospitalurobilinogen, urine, semiquantitative (dipstick) 2018-12-28 11:23:00 Test Item Value Reference Range Interpretation Comments urobilinogen, urine, 0.2 (unknown 0.2-1.0 semiquantitative (dipstick) unit) (test code = 5818-0) [facility]bilirubin, mwfwh5071-61-68 11:23:00 Test Item Value Reference Range Interpretation Comments bilirubin, urine (test code = Negative Negative 5770-3) [facility]alketones, urine, by test jtfhv4756-60-24 11:23:00 Test Item Value Reference Range Interpretation Comments ketones, urine, by test strip (test Negative Negative code = 5797-6) [facility]glucose, urine, vfovxqxpulwvrhmd6691-18-11 11:23:00 Test Item Value Reference Range Interpretation Comments glucose, urine, semiquantitative Negative Negative (test code = 5792-7) [facility]protein, urine, semiquantitative (dipstick)2018-12-28 11:23:00 Test Item Value Reference Range Interpretation Comments protein, urine, semiquantitative Negative Negative/Trace (dipstick) (test code = 1753-3) [facility]leukocyte esterase, urine, by nmoamvkb2558-83-39 11:23:00 Test Item Value Reference Range Interpretation Comments leukocyte esterase, urine, by dipstick 3+ Negative A (test code = 5799-2) [facility]appearance, idqdj6031-17-27 11:23:00 Test Item Value Reference Range Interpretation Comments appearance, urine (test code = 5767-9) Clear Clear [facility] Hospitalurine dxauu7815-20-82 11:23:00 Test Item Value Reference Range Interpretation Comments urine color (test code = 5778-6) Yellow Yellow [facility] HospitalpH, urine, buxfteuwmjtbgjfz9926-60-13 11:23:00 Test Item Value Reference Range Interpretation Comments pH, urine, semiquantitative 6.5 (unknown 5.0-7.5 (test code = 5803-2) unit) [facility]alspecific gravity, body [id number] 11:23:00 Test Item Value Reference Range Interpretation Comments specific gravity, body 1.015 (unknown unit) 1.005-1.030 fluid (test code = 2964-5) [facility] mfpqridokx6891-04-07 11:23:00 Test Item Value Reference Range Interpretation Comments WBC urine on microscopy (test code = 0-5 /hpf 0-5 1016) [facility]Quantifer[facility] Gold TB blood test for tuberculosis screening 2018-12-28 11:12:00 Test Item Value Reference Range Interpretation Comments Quantiferon Gold TB blood test Indeterminate Negative A for tuberculosis screening (test code = 19555-0) [facility]bilirubin, serum, dktflr9913-27-62 11:03:00 Test Item Value Reference Range Interpretation Comments bilirubin, serum, direct (test 0.07 mg/dL 0.00-0.40 code = 1968-7) [facility]rapid plasma reagin antibody, babzm4700-63-48 11:03:00 Test Item Value Reference Range Interpretation Comments rapid plasma reagin antibody, Non Reactive Non Reactive serum (test code = 5291-0) [facility]hepatitis C antibody, [id number] 11:03:00 Test Item Value Reference Range Interpretation Comments hepatitis C antibody, 0.1 (unknown unit) 0.0-0.9 serum (test code = 5199-5) [facility]alanine aminotransferase (SGPT), ipcwp0364-84-92 11:03:00 Test Item Value Reference Range Interpretation Comments alanine aminotransferase (SGPT), serum 61 1/L 0-32 H (test code = 1742-6) [facility] Hospitalaspartate aminotransferase (SGOT), mrjnn1648-54-29 11:03:00 Test Item Value Reference Range Interpretation Comments aspartate aminotransferase (SGOT), 55 1/L 0-40 H serum (test code = 1920-8) [facility]alkaline phosphatase, zzavi1884-11-49 11:03:00 Test Item Value Reference Range Interpretation Comments alkaline phosphatase, serum (test code 63 1/L 39-117 = 1783-0) [facility]bilirubin, serum, kdgxx3615-95-17 11:03:00 Test Item Value Reference Range Interpretation Comments bilirubin, serum, total (test code <0.2 mg/dL 0.0-1.2 = 1975-2) [facility] Healthalbumin/globulin ratio, capxm0896-45-24 11:03:00 Test Item Value Reference Range Interpretation Comments albumin/globulin ratio, 1.0 (unknown unit) 1.2-2.2 L serum (test code = 1759-0) [facility] Healthglobulin, pvhqg7083-80-48 11:03:00 Test Item Value Reference Range Interpretation Comments globulin, serum (test code 4.1 (unknown unit) 1.5-4.5 = 2336-6) [facility] Healthalbumin, chnwk3565-77-07 11:03:00 Test Item Value Reference Range Interpretation Comments albumin, serum (test code = 1751-7) 4.1 g/dL 3.5-5.5 [facility] Healthprotein, total, rautk7533-79-25 11:03:00 Test Item Value Reference Range Interpretation Comments protein, total, serum (test code = 8.2 g/dL 6.0-8.5 2885-2) [facility] Healthcalcium, rnwon8813-97-11 11:03:00 Test Item Value Reference Range Interpretation Comments calcium, serum (test code = 2000-8) 9.5 mg/dL 8.7-10.2 [facility]carbon dioxide, venous snnlm0193-98-07 11:03:00 Test Item Value Reference Range Interpretation Comments carbon dioxide, venous blood (test 21 mmol/L 20-29 code = 2027-1) [facility] Healthchloride, zakry2756-23-13 11:03:00 Test Item Value Reference Range Interpretation Comments chloride, serum (test code = 102 mmol/L 96-106 2075-0) [facility] Healthpotassium, hypme7614-33-13 11:03:00 Test Item Value Reference Range Interpretation Comments potassium, serum (test code = 4.1 mmol/L 3.5-5.2 2823-3) [facility]alsodium, gjapl4910-74-13 11:03:00 Test Item Value Reference Range Interpretation Comments sodium, serum (test code = 2951-2) 135 mmol/L 134-144 [facility] Hospitalurea nitrogen/creatinine ratio, kkwvt2995-75-12 11:03:00 Test Item Value Reference Range Interpretation Comments urea nitrogen/creatinine 14 (unknown unit) 9-23 ratio, serum (test code = 3097-3) [facility] HealtheGFR if Evcljbbu9307-81-25 11:03:00 Test Item Value Reference Range Interpretation Comments eGFR if 87 mL/min/{1.73 m2} >59 (test code = 86775-3) [facility] HospitalEstimated Glomerular Filtration Rate (calc)2018-12-28 11:03:00 Test Item Value Reference Range Interpretation Comments Estimated Glomerular 76 mL/min/{1.73 m2} >59 Filtration Rate (calc) (test code = 19912-8) [facility]creatinine, eazoc5554-91-44 11:03:00 Test Item Value Reference Range Interpretation Comments creatinine, serum (test code = 0.94 mg/dL 0.57-1.00 2160-0) [facility] Hospitalurea nitrogen, yqcec1898-48-51 11:03:00 Test Item Value Reference Range Interpretation Comments urea nitrogen, blood (test code = 13 mg/dL 6-24 3094-0) [facility]blood glucose, cbmmls6940-47-29 11:03:00 Test Item Value Reference Range Interpretation Comments blood glucose, random (test code = 97 mg/dL 65-99 2339-0) [facility] Hospitalimmature granulocytes, percentage of total cells, blood 2018-12-28 11:03:00 Test Item Value Reference Range Interpretation Comments immature granulocytes, percentage of 0 % total cells, blood (test code = 35504-7) [facility]basophil count, tbzqtoay0476-21-52 11:03:00 Test Item Value Reference Range Interpretation Comments basophil count, absolute (test 0.0 x10E3/uL 0.0-0.2 code = 56105-2) [facility] HealthEosinophil Absolute Zovcp9606-70-12 11:03:00 Test Item Value Reference Range Interpretation Comments Eosinophil Absolute Count (test 0.1 X10E3/UL 0.0-0.4 code = 37949-6) [facility] Healthmonocyte count, blood, dwmdljped2422-22-53 11:03:00 Test Item Value Reference Range Interpretation Comments monocyte count, blood, automated 0.2 X10E3/UL 0.1-0.9 (test code = 742-7) [facility]allymphocyte count, blood, qwqtslbid5405-60-38 11:03:00 Test Item Value Reference Range Interpretation Comments lymphocyte count, blood, 1.1 X10E3/UL 0.7-3.1 automated (test code = 731-0) [facility] HospitalAbsolute Bebkzfekyit2801-81-78 11:03:00 Test Item Value Reference Range Interpretation Comments Absolute Neutrophils (test code 2.6 X10E3/UL 1.4-7.0 = 12476-5) [facility]basophils as percent of blood ilngawzmmr6892-89-76 11:03:00 Test Item Value Reference Range Interpretation Comments basophils as percent of blood 0 % leukocytes (test code = 707-0) [facility] Healtheosinophils as percent of blood frmydaeouo6583-77-44 11:03:00 Test Item Value Reference Range Interpretation Comments eosinophils as percent of blood 3 % leukocytes (test code = 713-8) [facility] Healthmonocytes as percent of blood aujratwyzh0269-21-28 11:03:00 Test Item Value Reference Range Interpretation Comments monocytes as percent of blood 6 % leukocytes (test code = 5905-5) [facility]allymphocytes as percent of blood oibhrnedml5117-72-86 11:03:00 Test Item Value Reference Range Interpretation Comments lymphocytes as percent of blood 26 % leukocytes (test code = 736-9) [facility] Healthneutrophils as percent of blood uficbfpato2415-46-14 11:03:00 Test Item Value Reference Range Interpretation Comments neutrophils as percent of blood 65 % leukocytes (test code = 770-8) [facility] Hospitalplatelet fmnum8851-50-11 11:03:00 Test Item Value Reference Range Interpretation Comments platelet count (test code = 307 X10E3/UL 150-450 777-3) [facility]red blood cell distribution iqesn1690-79-04 11:03:00 Test Item Value Reference Range Interpretation Comments red blood cell distribution width 16.4 % 12.3-15.4 H (test code = 788-0) [facility] corpuscular hemoglobin concentration, [id number] 11:03:00 Test Item Value Reference Range Interpretation Comments mean corpuscular hemoglobin 31.0 G/DL 31.5-35.7 L concentration, RBC (test code = 786-4) [facility] corpuscular hemoglobin, [id number] 11:03:00 Test Item Value Reference Range Interpretation Comments mean corpuscular hemoglobin, RBC 25.6 pg 26.6-33.0 L (test code = 785-6) [facility] corpuscular volume, [id number] 11:03:00 Test Item Value Reference Range Interpretation Comments mean corpuscular volume, RBC (test code 83 fL 79-97 = 787-2) [facility]hematocrit, ixgad2283-12-46 11:03:00 Test Item Value Reference Range Interpretation Comments hematocrit, blood (test code = 4544-3) 35.5 % 34.0-46.6 [facility]hemoglobin, ztpiz8072-22-66 11:03:00 Test Item Value Reference Range Interpretation Comments hemoglobin, blood (test code = 11.0 g/dL 11.1-15.9 L 718-7) [facility] Hospitalerythrocyte (RBC) szmze1048-12-35 11:03:00 Test Item Value Reference Range Interpretation Comments erythrocyte (RBC) count (test 4.30 X10E6/UL 3.77-5.28 code = 789-8) [facility]leukocyte count, euiaj9693-24-01 11:03:00 Test Item Value Reference Range Interpretation Comments leukocyte count, blood (test 4.1 X10E3/UL 3.4-10.8 code = 6690-2) [facility]T-helper cells (CD4) as percent of blood lymphocytes 2018-12-28 11:03:00 Test Item Value Reference Range Interpretation Comments T-helper cells (CD4) as percent of 5.2 % 30.8-58.5 L blood lymphocytes (test code = 8123-2) [facility]T-[facility] cells (CD4) eiycg5977-24-67 11:03:00 Test Item Value Reference Range Interpretation Comments T-helper cells (CD4) count (test code 57 /UL 359-1519 L = 12487-3) [facility]hepatitis A antibody, ywvjt2147-66-89 11:03:00 Test Item Value Reference Range Interpretation Comments hepatitis A antibody, total (test Negative Negative code = 75) [facility], hdyaz9437-27-44 11:03:00 Test Item Value Reference Range Interpretation Comments hepatitis B core antibody, total Positive Negative A (test code = 77) [facility] surface ftqqvak3687-84-84 11:03:00 Test Item Value Reference Range Interpretation Comments hepatitis B surface antigen (test Negative Negative code = 79) [facility]HIV-[facility] antibodies, western afvp1032-07-21 11:03:00 Test Item Value Reference Range Interpretation Comments HIV-2 antibodies, western blot (test Negative Negative code = 34281) [facility], ksznh9071-61-67 11:03:00 Test Item Value Reference Range Interpretation Comments HIV-1/HIV-2 Ab, serum (test code = Positive Negative A 3399) [facility]HIV-CMIA (Chemiluminescent Microparticle Immuno Assay) 2018-12-28 11:03:00 Test Item Value Reference Range Interpretation Comments HIV-CMIA (Chemiluminescent Reactive Non Reactive A Microparticle Immuno Assay) (test code = 928158) [facility] [id number] 11:03:00 Test Item Value Reference Range Interpretation Comments human leukocyte antigen B57 (test Negative code = 789554) [facility]toxoplasma gondii antibody, [id number] 11:03:00 Test Item Value Reference Range Interpretation Comments toxoplasma gondii antibody, IgG (test <3.0 0.0-7.1 code = 2430) [facility] surface tyjrouqe0217-23-59 11:03:00 Test Item Value Reference Range Interpretation Comments hepatitis B surface antibody Non Reactive (test code = 78) [facility]HIV-1RNA, serum, by PCR, kiqrklcdgccd8057-29-43 11:03:00 Test Item Value Reference Range Interpretation Comments HIV-1RNA, serum, by PCR, quantitative 60 /mL (test code = 76339) [facility]CD4/CD8 fxcve0717-30-35 11:03:00 Test Item Value Reference Range Interpretation Comments CD4/CD8 ratio (test code 0.09 (unknown unit) 0.92-3.72 L = 05749) [facility]T-suppressor cells (CD8) as percent of blood lymphocytes 2018-12-28 11:03:00 Test Item Value Reference Range Interpretation Comments T-suppressor cells (CD8) as percent of 59.7 % 12.0-35.5 H blood lymphocytes (test code = 3517) [facility]absolute [id number] 11:03:00 Test Item Value Reference Range Interpretation Comments absolute CD8 (test code = 657 (unknown unit) 109-560 35053) [facility] HospitalWET [id number] 17:13:00 Test Item Value Reference Range Interpretation Comments WBC WET PREP Few white blood cells (BEAKER) (test code seen = 528) CLUE CELLS (BEAKER) Few clue cells seen (test code = 526) YEAST WET PREP No budding yeast seen (BEAKER) (test code = 530) TRICH WET PREP No Trichomonas seen (BEAKER) (test code = 531) BACT WET PREP Few bacteria seen (BEAKER) (test code = 532) BASIC METABOLIC [id number] 14:44:00 Test Item Value Reference Range Interpretation Comments SODIUM (BEAKER) 136 meq/L 135-148 (test code = 381) POTASSIUM (BEAKER) 3.8 meq/L 3.6-5.5 (test code = 379) CHLORIDE (BEAKER) 103 meq/L 98-106 (test code = 382) CO2 (BEAKER) (test 24 meq/L 24-32 code = 355) BLOOD UREA NITROGEN 8 mg/dL 10-26 L (BEAKER) (test code = 354) CREATININE (BEAKER) 0.78 mg/dL 0.50-1.20 (test code = 358) GLUCOSE RANDOM 125 mg/dL 70-110 H (BEAKER) (test code = 652) CALCIUM (BEAKER) 9.3 mg/dL 8.5-10.5 (test code = 697) EGFR (BEAKER) (test 100 mL/min/1.73 ESTIM ATED GFR IS code = 1092) sq m NOT ACCURATE CREATININE CLEARANCE IN PREDICTING GLOMERULAR FILTRATION RATE . ESTIMATED GFR I S NOT APPLICABLE FOR DIALYSIS PATIEN TS. CBC W/PLT COUNT & AUTO [id number] 14:34:00 Test Item Value Reference Range Interpretation Comments WHITE BLOOD CELL COUNT (BEAKER) 4.9 10e3/ L 4.0-10.0 (test code = 775) RED BLOOD CELL COUNT (BEAKER) 4.49 10e6/ L 4.00-5.00 (test code = 761) HEMOGLOBIN (BEAKER) (test code = 10.5 g/dL 12.0-15.0 L 410) HEMATOCRIT (BEAKER) (test code = 32.5 % 36.0-45.0 L 411) MEAN CORPUSCULAR VOLUME (BEAKER) 72.3 fL 82.0-99.0 L (test code = 753) MEAN CORPUSCULAR HEMOGLOBIN 23.3 pg 27.0-33.0 L (BEAKER) (test code = 751) MEAN CORPUSCULAR HEMOGLOBIN CONC 32.2 g/dL 32.0-36.0 (BEAKER) (test code = 752) RED CELL DISTRIBUTION WIDTH 18.2 % 10.3-14.2 H (BEAKER) (test code = 412) PLATELET COUNT (BEAKER) (test 342 10e3/ L 150-430 code = 756) MEAN PLATELET VOLUME (BEAKER) 8.2 fL 6.5-10.5 (test code = 754) NEUTROPHILS RELATIVE PERCENT 65 % (BEAKER) (test code = 429) LYMPHOCYTES RELATIVE PERCENT 26 % (BEAKER) (test code = 430) MONOCYTES RELATIVE PERCENT 7 % (BEAKER) (test code = 431) EOSINOPHILS RELATIVE PERCENT 2 % (BEAKER) (test code = 432) BASOPHILS RELATIVE PERCENT 1 % (BEAKER) (test code = 437) NEUTROPHILS ABSOLUTE COUNT 3.17 10e3/ L 1.80-8.00 (BEAKER) (test code = 670) LYMPHOCYTES ABSOLUTE COUNT 1.25 10e3/ L 1.48-4.50 L (BEAKER) (test code = 414) MONOCYTES ABSOLUTE COUNT 0.34 10e3/ L 0.00-1.30 (BEAKER) (test code = 415) EOSINOPHILS ABSOLUTE COUNT 0.11 10e3/ L 0.00-0.50 (BEAKER) (test code = 416) BASOPHILS ABSOLUTE COUNT 0.02 10e3/ L 0.00-0.20 (BEAKER) (test code = 417) URINALYSIS W/ [id number] 14:27:00 Test Item Value Reference Range Interpretation Comments COLOR (BEAKER) (test Dark Yellow code = 470) CLARITY (BEAKER) (test Slightly Hazy code = 469) SPECIFIC GRAVITY UA 1.020 1.001-1.035 (BEAKER) (test code = 468) PH UA (BEAKER) (test 7.0 5.0-8.0 code = 467) PROTEIN UA (BEAKER) Negative Negative (test code = 464) GLUCOSE UA (BEAKER) Negative Negative (test code = 365) KETONES UA (BEAKER) Negative Negative (test code = 371) BILIRUBIN UA (BEAKER) Negative Negative (test code = 462) BLOOD UA (BEAKER) (test Negative Negative code = 461) NITRITE UA (BEAKER) Negative Negative (test code = 465) LEUKOCYTE ESTERASE UA Negative Negative (BEAKER) (test code = 466) UROBILINOGEN UA (BEAKER) 2.0 mg/dL 0.2-1.0 H (test code = 463) BACTERIA (BEAKER) (test Few code = 517) MUCUS (BEAKER) (test Few code = 1574) RBC UA-MANUAL (BEAKER) <5 /HPF (test code = 1659) WBC UA-MANUAL (BEAKER) <5 /HPF (test code = 1661) SQUAMOUS EPITHELIAL 10-20 /HPF Clue christiano ls few. MANUAL (BEAKER) (test code = 1663) SOURCE(BEAKER) (test code = 2795) SCREEN, [id number] 14:25:00 Test Item Value Reference Range Interpretation Comments TEST URINE (BEAKER) (test Negative code = 583) rapid plasma reagin antibody, [id number] 10:25:00 Test Item Value Reference Range Interpretation Comments rapid plasma reagin antibody, Non Reactive Non Reactive serum (test code = 5291-0) [facility] antibody, [id number] 10:25:00 Test Item Value Reference Range Interpretation Comments hepatitis C antibody, serum (test code <0.1 0.0-0.9 = 5199-5) [facility]LDL cholesterol, [id number] 10:25:00 Test Item Value Reference Range Interpretation Comments LDL cholesterol, serum (test code = 76 mg/dL 0-99 2088-1) [facility]very low density gadvtqcrwano9954-73-76 10:25:00 Test Item Value Reference Range Interpretation Comments very low density lipoproteins (test 13 mg/dL 5-40 code = 2091-7) [facility], [id number] 10:25:00 Test Item Value Reference Range Interpretation Comments HDL cholesterol, serum (test code = 41 mg/dL >39 2084-9) [facility], serum, [id number] 10:25:00 Test Item Value Reference Range Interpretation Comments triglyceride, serum, fasting (test 64 mg/dL 0-149 code = 2571-8) [facility]cholesterol, [id number] 10:25:00 Test Item Value Reference Range Interpretation Comments cholesterol, serum (test code = 130 mg/dL 141-960 0665-3) [facility]alanine aminotransferase (SGPT), [id number] 10:25:00 Test Item Value Reference Range Interpretation Comments alanine aminotransferase (SGPT), serum 13 1/L 0-32 (test code = 1742-6) [facility]aspartate aminotransferase (SGOT), [id number] 10:25:00 Test Item Value Reference Range Interpretation Comments aspartate aminotransferase (SGOT), 16 1/L 0-40 serum (test code = 1920-8) [facility]alk[facility] phosphatase, [id number] 10:25:00 Test Item Value Reference Range Interpretation Comments alkaline phosphatase, serum (test code 71 1/L 39-117 = 1783-0) [facility]bilirubin, serum, [id number] 10:25:00 Test Item Value Reference Range Interpretation Comments bilirubin, serum, total (test code 0.3 mg/dL 0.0-1.2 = 1975-2) [facility] Healthalbumin/globulin ratio, [id number] 10:25:00 Test Item Value Reference Range Interpretation Comments albumin/globulin ratio, 0.9 (unknown unit) 1.1-2.5 L serum (test code = 1759-0) [facility] Healthglobulin, [id number] 10:25:00 Test Item Value Reference Range Interpretation Comments globulin, serum (test code 4.3 (unknown unit) 1.5-4.5 = 2336-6) [facility] Healthalbumin, [id number] 10:25:00 Test Item Value Reference Range Interpretation Comments albumin, serum (test code = 1751-7) 3.9 g/dL 3.5-5.5 [facility] Healthprotein, total, [id number] 10:25:00 Test Item Value Reference Range Interpretation Comments protein, total, serum (test code = 8.2 g/dL 6.0-8.5 2885-2) [facility]calcium, [id number] 10:25:00 Test Item Value Reference Range Interpretation Comments calcium, serum (test code = 1999-8) 9.3 mg/dL 8.7-10.2 [facility]carbon dioxide, venous [id number] 10:25:00 Test Item Value Reference Range Interpretation Comments carbon dioxide, venous blood (test 25 mmol/L code = 2026-1) [facility] Healthchloride, [id number] 10:25:00 Test Item Value Reference Range Interpretation Comments chloride, serum (test code = 100 mmol/L 97-108 5-0) [facility]potassium, [id number] 10:25:00 Test Item Value Reference Range Interpretation Comments potassium, serum (test code = 4.2 mmol/L 3.5-5.2 2823-3) [facility]alsodium, [id number] 10:25:00 Test Item Value Reference Range Interpretation Comments sodium, serum (test code = 2951-2) 138 mmol/L 134-144 [facility]urea nitrogen/creatinine ratio, [id number] 10:25:00 Test Item Value Reference Range Interpretation Comments urea nitrogen/creatinine 9 (unknown unit) 8-20 ratio, serum (test code = 3097-3) [facility] HealtheGFR if [id number] 10:25:00 Test Item Value Reference Range Interpretation Comments eGFR if 132 mL/min/{1.73 m2} >59 (test code = 03730-3) [facility] HospitalEstimated Glomerular Filtration Rate (calc)2014-05-30 10:25:00 Test Item Value Reference Range Interpretation Comments Estimated Glomerular 115 mL/min/{1.73 m2} >59 Filtration Rate (calc) (test code = 12134-2) [facility]creatinine, [id number] 10:25:00 Test Item Value Reference Range Interpretation Comments creatinine, serum (test code = 0.65 mg/dL 0.57-1.00 2160-0) [facility]urea nitrogen, [id number] 10:25:00 Test Item Value Reference Range Interpretation Comments urea nitrogen, blood (test code = 6 mg/dL 6-20 3094-0) [facility]blood glucose, [id number] 10:25:00 Test Item Value Reference Range Interpretation Comments blood glucose, random (test code = 96 mg/dL 65-99 2339-0) [facility]immature granulocytes, percentage of total cells, blood 2014-05-30 10:25:00 Test Item Value Reference Range Interpretation Comments immature granulocytes, percentage of 0 % total cells, blood (test code = 46276-2) [facility]basophil count, [id number] 10:25:00 Test Item Value Reference Range Interpretation Comments basophil count, absolute (test 0.0 x10E3/uL 0.0-0.2 code = 57383-0) [facility]Eosinophil Absolute [id number] 10:25:00 Test Item Value Reference Range Interpretation Comments Eosinophil Absolute Count (test 0.1 X10E3/UL 0.0-0.4 code = 17171-5) [facility]monocyte count, blood, [id number] 10:25:00 Test Item Value Reference Range Interpretation Comments monocyte count, blood, automated 0.3 X10E3/UL 0.1-0.9 (test code = 742-7) [facility]allymphocyte count, blood, [id number] 10:25:00 Test Item Value Reference Range Interpretation Comments lymphocyte count, blood, 1.0 X10E3/UL 0.7-3.1 automated (test code = 731-0) [facility] HospitalAbsolute [id number] 10:25:00 Test Item Value Reference Range Interpretation Comments Absolute Neutrophils (test code 3.2 X10E3/UL 1.4-7.0 = 78313-6) [facility]basophils as percent of blood [id number] 10:25:00 Test Item Value Reference Range Interpretation Comments basophils as percent of blood 0 % leukocytes (test code = 707-0) [facility]aleosinophils as percent of blood [id number] 10:25:00 Test Item Value Reference Range Interpretation Comments eosinophils as percent of blood 3 % leukocytes (test code = 713-8) [facility] Healthmonocytes as percent of blood [id number] 10:25:00 Test Item Value Reference Range Interpretation Comments monocytes as percent of blood 6 % leukocytes (test code = 5905-5) [facility]allymphocytes as percent of blood [id number] 10:25:00 Test Item Value Reference Range Interpretation Comments lymphocytes as percent of blood 21 % leukocytes (test code = 736-9) [facility]neutrophils as percent of blood [id number] 10:25:00 Test Item Value Reference Range Interpretation Comments neutrophils as percent of blood 70 % leukocytes (test code = 770-8) [facility]platelet [id number] 10:25:00 Test Item Value Reference Range Interpretation Comments platelet count (test code = 340 X10E3/UL 150-379 777-3) [facility]red blood cell distribution [id number] 10:25:00 Test Item Value Reference Range Interpretation Comments red blood cell distribution width 13.1 % 12.3-15.4 (test code = 788-0) [facility]mean corpuscular hemoglobin concentration, [id number] 10:25:00 Test Item Value Reference Range Interpretation Comments mean corpuscular hemoglobin 32.4 G/DL 31.5-35.7 concentration, RBC (test code = 786-4) [facility]mean corpuscular hemoglobin, [id number] 10:25:00 Test Item Value Reference Range Interpretation Comments mean corpuscular hemoglobin, RBC 25.7 pg 26.6-33.0 L (test code = 785-6) [facility], [id number] 10:25:00 Test Item Value Reference Range Interpretation Comments mean corpuscular volume, RBC (test code 79 fL 79-97 = 787-2) [facility]hematocrit, [id number] 10:25:00 Test Item Value Reference Range Interpretation Comments hematocrit, blood (test code = 4544-3) 34.0 % 34.0-46.6 [facility]hemoglobin, [id number] 10:25:00 Test Item Value Reference Range Interpretation Comments hemoglobin, blood (test code = 11.0 g/dL 11.1-15.9 L 718-7) [facility]erythrocyte (RBC) [id number] 10:25:00 Test Item Value Reference Range Interpretation Comments erythrocyte (RBC) count (test 4.28 X10E6/UL 3.77-5.28 code = 789-8) [facility]leukocyte count, [id number] 10:25:00 Test Item Value Reference Range Interpretation Comments leukocyte count, blood (test 4.6 X10E3/UL 3.4-10.8 code = 6690-2) [facility]T-helper cells (CD4) as percent of blood lymphocytes 2014-05-30 10:25:00 Test Item Value Reference Range Interpretation Comments T-helper cells (CD4) as percent of 20.2 % 30.8-58.5 L blood lymphocytes (test code = 8123-2) [facility]T-helper cells (CD4) [id number] 10:25:00 Test Item Value Reference Range Interpretation Comments T-helper cells (CD4) count (test code 202 /UL 359-1519 L = 40744-4) [facility]HIV-1 RNA (log 10)2014-05-30 10:25:00 Test Item Value Reference Range Interpretation Comments HIV-1 RNA (log 10) (test 4.689 bcf36adno/mL code = 57996) [facility]HIV-1RNA, serum, by PCR, [id number] 10:25:00 Test Item Value Reference Range Interpretation Comments HIV-1RNA, serum, by PCR, 20961 /mL quantitative (test code = 15101) [facility]hepatitis A antibody, [id number] 10:25:00 Test Item Value Reference Range Interpretation Comments hepatitis A antibody, total (test Negative Negative code = 75) [facility]he[facility] B core antibody, [id number] 10:25:00 Test Item Value Reference Range Interpretation Comments hepatitis B core antibody, total Positive Negative A (test code = 77) [facility]he[facility] surface [id number] 10:25:00 Test Item Value Reference Range Interpretation Comments hepatitis B surface antigen (test Negative Negative code = 79) [facility]toxoplasma gondii antibody, [id number] 10:25:00 Test Item Value Reference Range Interpretation Comments toxoplasma gondii antibody, IgG (test <3.0 0.0-5.9 code = 2430) [facility]hepat[facility] surface [id number] 10:25:00 Test Item Value Reference Range Interpretation Comments hepatitis B surface antibody Non Reactive (test code = 78) [facility]HIV-2 antibodies, western [id number] 10:25:00 Test Item Value Reference Range Interpretation Comments HIV-2 antibodies, western blot Non Reactive Non Reactive (test code = 75293) [facility]HIV-1 antibody, western blot, [id number] 10:25:00 Test Item Value Reference Range Interpretation Comments HIV-1 antibody, western blot, serum Reactive Non Reactive A (test code = 4311) [facility]HIV-1/HIV-2 Ab, [id number] 10:25:00 Test Item Value Reference Range Interpretation Comments HIV-1/HIV-2 Ab, serum Repeatedly Reactive Non Reactive A (test code = 3399) [facility] HospitalCD4/CD8 [id number] 10:25:00 Test Item Value Reference Range Interpretation Comments CD4/CD8 ratio (test code 0.33 (unknown unit) 0.92-3.72 L = 90675) [facility] HospitalT-suppressor cells (CD8) as percent of blood lymphocytes 2014-05-30 10:25:00 Test Item Value Reference Range Interpretation Comments T-suppressor cells (CD8) as percent of 60.8 % 12.0-35.5 H blood lymphocytes (test code = 3517) [facility]absolute [id number] 10:25:00 Test Item Value Reference Range Interpretation Comments absolute CD8 (test code = 608 (unknown unit) [phone]) [facility]
[2021-12-20 10:33] LABS: Absolute Lymphocytes (CBC) 0.6 K/uL (0.7-4.9); Hematocrit 27.5 % (36.0-45.0); MPV 7.7 fL (7.6-11.3); RBC Red Blood Cell Count 4.07 M/uL (3.86-4.86)
[2021-12-20 10:35] LABS: Urine Blood Negative (Negative); Urine Glucose Negative (Negative); Urine Protein Negative (Negative)
[2021-12-20 10:48] LABS: Albumin 3.2 g/dL (3.4-5.0); Bilirubin Total 0.1 mg/dL (0.2-1.0); Potassium 3.8 mmol/L (3.5-5.1); Protein, Total 8.9 g/dL (6.4-8.2)
[2021-12-20] MEDS ORDERED: ONDANSETRON 4 MG/2 ML VIAL ONE (11:28)
[2021-12-20] MEDS ORDERED: FAMOTIDINE 20 MG/2 ML VIAL IV ONE (11:28)
[2021-12-20] MEDS ORDERED: MORPHINE 4 MG/ML SYR ONE (11:28)
[2021-12-20] MEDS ORDERED: NA CHLORIDE 0.9% 1,000 ML ONE (11:28)
[2021-12-20 12:00] LABS: Anisocytosis 1+; Blood Morphology Comment NOTED (NOT SEEN); Hypochromasia 1+; Platelet Estimate INCR; Platelets, Giant 1+; White Blood Cell Scan OK (OK)
[2021-12-20 12:01] LABS: Elliptocytes 1+; Teardrop Cell 1+
--- NOTE | 2021-12-20 12:59 | RAD REPORT ---
EXAM DESCRIPTION: CTAbdomen Pelvis W Contrast - 12/20/2021 12:48 pm CLINICAL HISTORY: Abdominal pain. Abdominal pain, acute, nonlocalized COMPARISON: No comparisons TECHNIQUE: Biphasic CT imaging of the abdomen and pelvis was performed with 100 ml non-ionic IV cont rast. All CT scans are performed using dose optimization technique as appropriate and may include automated exposure control or mA/KV adjustment according to patient size. FINDINGS: The lung bases are clear.Small hiatal hernia. The liver, spleen, pancreas, adrenal glands and kidneys are within normal limits. No bowel obstruction, free air, free fluid or abscess. The appendix is normal. No evidence of signi ficant lymphadenopathy. No suspicious bony findings. IMPRESSION: No acute intra-abdominal or pelvic finding.
--- NOTE | 2021-12-20 13:30 | ER ---
Nurse's Notes [facility] Name: Bina Kerr Age: 46 yrs Sex: Female : 1975 Arrival Date: 12/20/2021 Time: 09:43 Bed 12 Private MD: Diagnosis: Abdominal pain, Generalized Presentation: 12/20 10:05 Chief complaint: Patient states: has had back pain off and on since 2019 and vg1 stated "it hurts really bad now since Im also having stomach pain" c/o ABD pain that began x1 week; denies NVD. Coronavirus screen: Vaccine status: Patient reports being unvaccinated. Client denies travel out of the [place] in the last 14 days. Ebola Screen: Patient denies exposure to infectious person. Patient denies travel to an Ebola-affected area in the 21 days before illness onset. Initial Sepsis Screen: Does the patient meet any 2 criteria? No. Patient's initial sepsis screen is negative. Does the patient have a suspected source of infection? No. Patient's initial sepsis screen is negative. Risk Assessment: Do you want to hurt yourself or someone else? Patient reports no desire to harm self or others. Onset of symptoms was December 13, 2021. 10:05 Method Of Arrival: Ambulatory vg1 10:05 Acuity: RIRI 3 vg1 Triage Assessment: 10:07 General: Appears uncomfortable, Behavior is calm, cooperative. Pain: Complains of pain vg1 in abdomen and lower back Pain currently is 10 out of 10 on a pain scale. GI: Abdomen is round non-distended, Patient currently denies diarrhea, nausea, vomiting. Musculoskeletal: Circulation, motion, and sensation intact. 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 - Social history:: Smoking status: Patient reports the use of cigarette tobacco products, smokes one-half pack cigarettes per day. Screenin:00 Abuse screen: Denies threats or abuse. Nutritional screening: No deficits noted. vg1 Tuberculosis screening: No symptoms or risk factors identified. Fall Risk No fall in past 12 months (0 pts). No secondary diagnosis (0 pts). IV access (20 points). Ambulatory Aid- None/Bed Rest/Nurse Assist (0 pts). Gait- Normal/Bed Rest/Wheelchair (0 pts) Mental Status- Oriented to own ability (0 pts). Total He Fall Scale indicates No Risk (0-24 pts). Assessment: 10:20 General: Appears uncomfortable, Behavior is calm, cooperative. Pain: Complains of pain aa5 in right upper quadrant, left upper quadrant, right lower quadrant and left lower quadrant and lower back Pain currently is 10 out of 10 on a pain scale. Quality of pain is described as sharp, Pain began 2-3 days ago. Is continuous. Neuro: Level of Consciousness is awake, alert, obeys commands, Oriented to person, place, time, situation. Cardiovascular: Heart tones S1 S2 present Rhythm is regular. Respiratory: Airway is patent Respiratory effort is even, unlabored, Respiratory pattern is regular, symmetrical. GI: Abdomen is round non-distended, Bowel sounds present X 4 quads. Abd is soft and non tender X 4 quads. Patient currently denies diarrhea, nausea, vomiting. : No signs and/or symptoms were reported regarding the genitourinary system. Denies burning with urination, inability to void, incontinence, urinary frequency, urgency. EENT: No signs and/or symptoms were reported regarding the EENT system. Derm: Skin is dry, Skin is normal, Skin temperature is warm. 11:30 Neuro: Level of Consciousness is awake, alert, obeys commands, Oriented to person, aa5 place, time, situation. Respiratory: Airway is patent Respiratory effort is even, unlabored, Respiratory pattern is regular, symmetrical. Derm: Skin is dry, Skin is normal, Skin temperature is warm. 11:50 Reassessment: Patient states feeling better. Pain: Pain currently is 4 out of 10 on a aa5 pain scale. 12:30 Reassessment: Patient states feeling better. aa5 12:30 Neuro: Level of Consciousness is awake, alert, obeys commands, Oriented to person, aa5 place, time, situation. Respiratory: Airway is patent Respiratory effort is even, unlabored, Respiratory pattern is regular, symmetrical. Derm: Skin is dry, Skin is normal, Skin temperature is warm. 13:59 Reassessment: received VO from Dr Lindsey to administer Benadryl 50 mg PO x1. vg1 14:01 Reassessment: Patient appears in no apparent distress at this time. Patient and/or vg1 family updated on plan of care and expected duration. Pain level reassessed. Patient is alert, oriented x 3, equal unlabored respirations, skin warm/dry/pink. Patient states feeling better. Vital Signs: 10:05 BP 129 / 86; Pulse 67; Resp 16; Temp 97.9(TE); Pulse Ox 100% on R/A; Weight 85.73 kg; vg1 Height 5 ft. 4 in. (162.56 cm); Pain 10/10; 11:28 BP 124 / 79; Pulse 56; Resp 18 S; Pulse Ox 100% on R/A; aa5 10:05 Body Mass Index 32.44 (85.73 kg, 162.56 cm) vg1 ED Course: 09:43 Patient arrived in ED. as 09:59 Shaq Lindsey MD is Attending Physician. kdr 10:07 Triage completed. vg1 10:07 Arm band placed on. vg1 10:20 Roberta Lamb, RN is Primary Nurse. aa5 10:26 Inserted saline lock: 20 gauge in right antecubital area, using aseptic technique. jw7 Blood collected. 10:26 Initial lab(s) drawn, by me, sent to lab. jw7 10:35 Warm blanket given. jw7 10:35 Urine collected: clean catch specimen, clear, Amount Voided: 20mL. jw7 12:49 Abdomen In Process Unspecified. EDMS 14:00 Patient has correct armband on for positive identification. vg1 14:00 No provider procedures requiring assistance completed. IV discontinued, intact, vg1 bleeding controlled, No redness/swelling at site. Pressure dressing applied. Administered Medications: 11:28 Drug: Zofran (Ondansetron) 4 mg Route: IVP; Site: right antecubital; aa5 11:28 Drug: Pepcid (famotidine) 20 mg Route: IVP; Site: right antecubital; aa5 11:28 Drug: NS 0.9% 1000 ml Route: IV; Rate: 1 bolus; Site: right antecubital; aa5 13:59 Follow up: IV Status: Completed infusion; IV Intake: 1000ml vg1 11:30 Drug: morphine 4 mg Route: IVP; Site: right antecubital; aa5 13:59 Drug: Benadryl (diphenhydrAMINE) 50 mg Route: PO; vg1 Medication: 14:00 VIS not applicable for this client. vg1 Intake: 13:59 IV: 1000ml; Total: 1000ml. vg1 Outcome: 13:30 Discharge ordered by . kdr 14:00 Discharged to home ambulatory. vg1 14:00 Condition: good 14:00 Discharge instructions given to patient, Instructed on discharge instructions, follow up and referral plans. medication usage, Demonstrated understanding of instructions, follow-up care, medications, Prescriptions given X 3. 14:01 Patient left the ED. vg1 Signatures: Dispatcher [employer] EDMS Shaq Lindsey MD MD kdr Martinez, Amelia as Calderon, Audri, RN RN aa5 Tana Cedeno RN RN vg1 Rufina Perez jw7 Corrections: (The following items were deleted from the chart) 15:33 12:30 Reassessment: Patient is alert, oriented x 3, equal unlabored respirations, skin aa5 warm/dry/pink. Patient states feeling better. aa5
--- NOTE | 2021-12-20 13:30 | EDPHYS ---
Physician Documentation [facility] Name: Bina Kerr Age: 46 yrs Sex: Female : 1975 Arrival Date: 12/20/2021 Time: 09:43 Bed 12 Private MD: ED Physician Shaq Lindsey HPI: 12/20 11:45 This 46 yrs old Black Female presents to ER via Ambulatory with complaints of Back kdr Pain, Abdominal Pain. 11:45 The patient presents with pain that is acute, with no known mechanism of injury. kdr 11:46 The patient presents with abdominal pain in the epigastric area, in the upper abdomen, kdr that is diffuse, The pain was around 10:00 last night, popcorn and wraps around her abdomen into her low back. Onset: The symptoms/episode began/occurred 1 week(s) ago, Patient is had this pain intermittently for several years. This episode started about a week ago but in the last 24 hours become particularly worse. She has had some nausea and vomited once yesterday but none since. She is nontoxic-appearing but does appear mildly uncomfortable. The symptoms radiate to back. Associated signs and symptoms: Pertinent positives: nausea. The symptoms are described as achy, crampy, intermittent, vague, waxing/waning. Modifying factors: The symptoms are alleviated by nothing, the symptoms are aggravated by movement, The patient did eat a full breakfast this morning without vomiting. Severity of pain: At its worst the pain was mild moderate just prior to arrival, in the emergency department the pain is actually worse. The patient has experienced similar episodes in the past, chronically, but today's symptoms are worse. The patient has not recently seen a physician. 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 - Social history:: Smoking status: Patient reports the use of cigarette tobacco products, smokes one-half pack cigarettes per day. ROS: 11:46 Constitutional: Negative for fever, chills, and weight loss, Eyes: Negative for injury, kdr pain, redness, and discharge, ENT: Negative for injury, pain, and discharge, Neck: Negative for injury, pain, and swelling, Cardiovascular: Negative for chest pain, palpitations, and edema, Respiratory: Negative for shortness of breath, cough, wheezing, and pleuritic chest pain, Back: Negative for injury and pain, : Negative for injury, bleeding, discharge, and swelling, MS/Extremity: Negative for injury and deformity, Skin: Negative for injury, rash, and discoloration, Neuro: Negative for headache, weakness, numbness, tingling, and seizure activity. Psych: Negative for depression, anxiety, suicide ideation, homicidal ideation, and hallucinations, Allergy/Immunology: Negative for hives, rash, and allergies, Endocrine: Negative for neck swelling, polydipsia, polyuria, polyphagia, and marked weight changes, Hematologic/Lymphatic: Negative for swollen nodes, abnormal bleeding, and unusual bruising. 11:46 Abdomen/GI: Positive for abdominal pain, nausea. Exam: 11:52 Constitutional: This is a well developed, well nourished patient who is awake, alert, kdr and in mild distress. Head/Face: Normocephalic, atraumatic. Eyes: Pupils equal round and reactive to light, extra-ocular motions intact. Lids and lashes normal. Conjunctiva and sclera are non-icteric and not injected. Cornea within normal limits. Periorbital areas with no swelling, redness, or edema. ENT: Nares patent. No nasal discharge, no septal abnormalities noted. Tympanic membranes are normal and external auditory canals are clear. Oropharynx with no redness, swelling, or masses, exudates, or evidence of obstruction, uvula midline. Mucous membranes moist. Neck: Trachea midline, no thyromegaly or masses palpated, and no cervical lymphadenopathy. Supple, full range of motion without nuchal rigidity, or vertebral point tenderness. No Meningismus. Chest/axilla: Normal chest wall appearance and motion. Nontender with no deformity. No lesions are appreciated. Cardiovascular: Regular rate and rhythm with a normal S1 and S2. No gallops, murmurs, or rubs. Normal PMI, no JVD. No pulse deficits. Respiratory: Lungs have equal breath sounds bilaterally, clear to auscultation and percussion. No rales, rhonchi or wheezes noted. No increased work of breathing, no retractions or nasal flaring. Back: No spinal tenderness. No costovertebral tenderness. Full range of motion. Skin: Warm, dry with normal turgor. Normal color with no rashes, no lesions, and no evidence of cellulitis. MS/ Extremity: Pulses equal, no cyanosis. Neurovascular intact. Full, normal range of motion. Neuro: Awake and alert, GCS 15, oriented to person, place, time, and situation. Cranial nerves II-XII grossly intact. Motor strength 5/5 in all extremities. Sensory grossly intact. Cerebellar exam normal. Normal gait. Psych: Awake, alert, with orientation to person, place and time. Behavior, mood, and affect are within normal limits. 11:52 Abdomen/GI: Inspection: obese Bowel sounds: diminished, in all quadrants, Palpation: soft, mild abdominal tenderness, in the epigastric area, right upper quadrant and left upper quadrant. Vital Signs: 10:05 BP 129 / 86; Pulse 67; Resp 16; Temp 97.9(TE); Pulse Ox 100% on R/A; Weight 85.73 kg; vg1 Height 5 ft. 4 in. (162.56 cm); Pain 1010; 11:28 BP 124 / 79; Pulse 56; Resp 18 S; Pulse Ox 100% on R/A; aa5 10:05 Body Mass Index 32.44 (85.73 kg, 162.56 cm) vg1 MDM: 11:52 Data reviewed: vital signs, nurses notes, lab test result(s), radiologic studies. kdr Counseling: I had a detailed discussion with the patient and/or guardian regarding: the historical points, exam findings, and any diagnostic results supporting the discharge/admit diagnosis, lab results, radiology results. 13:30 Patient medically screened. kdr 12/20 10:11 Order name: CBC with Diff; Complete Time: 13:06 vg1 12/20 10:11 Order name: CMP; Complete Time: 10:57 vg1 12/20 10:11 Order name: Lipase; Complete Time: 10:57 1 12/20 10:36 Order name: Urine Dipstick-Ancillary; Complete Time: 10:57 EDMS 12/20 10:58 Order name: Urine --Ancillary (enter results) eb 12/20 11:59 Order name: CBC Smear Scan; Complete Time: 13:06 [facility] 12/20 10:11 Order name: IV Saline Lock; Complete Time: 10:26 [facility] 12/20 11:53 Order name: Abdomen ; Complete Time: 13:06 [facility] 12/20 10:11 Order name: Labs collected and sent; Complete Time: 10:26 1 12/20 10:11 Order name: Urine Dipstick-Ancillary (obtain specimen); Complete Time: 10:36 [facility] 12/20 10:11 Order name: Urine Test (obtain specimen); Complete Time: 10:36 vg1 Administered Medications: 11:28 Drug: Zofran (Ondansetron) 4 mg Route: IVP; Site: right antecubital; aa5 11:28 Drug: Pepcid (famotidine) 20 mg Route: IVP; Site: right antecubital; aa5 11:28 Drug: NS 0.9% 1000 ml Route: IV; Rate: 1 bolus; Site: right antecubital; aa5 13:59 Follow up: IV Status: Completed infusion; IV Intake: 1000ml 1 11:30 Drug: morphine 4 mg Route: IVP; Site: right antecubital; aa5 13:59 Drug: Benadryl (diphenhydrAMINE) 50 mg Route: PO; vg1 Disposition Summary: 12/20/21 13:30 Discharge Ordered Location: Home kdr Problem: new kdr Symptoms: have improved kdr Condition: Stable kdr Diagnosis - Abdominal pain, Generalized kdr Followup: kdr - With: Private Physician - When: 2 - 3 days - Reason: If symptoms return, Further diagnostic work-up, Recheck today's complaints, Continuance of care, Re-evaluation by your physician Discharge Instructions: - Discharge Summary Sheet kdr - Abdominal Pain, Adult, [id number] kdr Forms: - Medication Reconciliation Form kdr - Thank You Letter kdr Prescriptions: - Tramadol 50 mg Oral Tablet - take 1 tablet by ORAL route every 8 hours As needed as needed; 6 tablet; kdr Refills: 0, Product Selection Permitted - Benadryl 25 mg Oral Capsule - take 1 capsule by ORAL route every 6 hours As needed; 30 tablet; Refills: 0, kdr Product Selection Permitted - Medrol (Rosendo) 4 mg Oral Tablets, Dose Pack - take 1 tablet by ORAL route as directed - follow package instructions; 1 kdr packet; Refills: 0, Product Selection Permitted Signatures: Dispatcher [employer] Shaq Daniels MD MD kdr Calderon, Audri, RN RN aa5 Tana Cedeno RN RN vg1
[2021-12-20] MEDS ORDERED: DIPHENHYDRAMINE 25 MG TAB/CAP ONE (13:56)
[2021-12-20 14:06] VITALS: TEMP 97.9; O2SAT 100
[2021-12-20 14:07] VITALS: BP 124/79
== END 2021-12-20 14:01 | disposition home or self-care (01) ==
LOC: ER 09:40
DX: R10.84 Generalized abdominal pain (principal); F32.A Depression, unspecified; F17.210 Nicotine dependence, cigarettes, uncomplicated
CPT/HCPCS: 96361; 85025; 36415; 81025; 81003; 83690; 80053; 74177; 96375; 96374; 99284; Q9967; J7030; J2405; J3490